=== PATIENT | female | born 1955 | race Caucasian/White ===

== ENCOUNTER 2019-05-04 12:22 | Inpatient (IN) | payer MEDICARE, BC ==
[2019-05-04] MEDS ORDERED: Sodium Chloride 0.9% 1,000 ML IV ONE (12:41)
--- NOTE | 2019-05-04 12:49 | ED Physician Chart ---
ED Chief Complaint/HPI - Patient Information Date Seen:: 05/04/19 Time Seen:: 12:35 Chief Complaint:: abdominal pain and diarrhea History of Present Illness:: Patient's had epigastric pain and diarrhea for 3 days. She has nausea but no vomiting. No fever. She has had diarrhea about 10 times. Pain is currently 6 on a scale of 1-10 Allergies:: Allergies Allergy/AdvReac Type Severity Reaction Status Date / Time No Known Allergies Allergy Verified 05/04/19 12:35 Vitals:: Vital Signs - 8 hr 05/04/19 12:35 Temp 98 F HR 94 RR 16 BP 125/58 O2 Sat % 97 Historian:: Patient, Family Member Review:: Nurse's Note Reviewed ED Review of Systems - Review of Systems General/Constitutional: No fever, No chills Skin: No skin lesions Head: No headache Eyes: No loss of vision ENT: No earache Neck: No neck pain Cardio Vascular: No chest pain, No palpitations Pulmonary: No SOB GI: Nausea, Diarrhea, Pain G/U: No dysuria, No frequency, No hematuria Musculoskeletal: No bone or joint pain, No back pain, No muscle pain Endocrine: No polyuria Psychiatric: No prior psych history Hematopoietic: No bruising Allergic/Immuno: No urticaria Neurological: No syncope ED Past Medical History - Past Medical History Past Medical History: HTN, DM, Dyslipidemia, Other (hyperlipidemia) Family History: Diabetes Melitus, HTN Social History: Non Smoker, No Alcohol Surgical History: Cholecystectomy, other (lumbar surgery 02/25/2019 with 8 screws in her back. Since the surgeries she's been unable to walk) Psychiatricy History: None Medication: Reviewed ED Physical Exam - Physical Examination General/Constitutional: Awake, Well-developed, well-nourished, Alert Head: Atraumatic Eyes: Lids, conjuctiva normal, PERRL Skin: No rash, No ecchymosis, Well hydrated, No lymphadenopathy Other Skin comments:: Stage sacral decubitus is reported by the RN ENMT: External ears, nose nl, Nasal exam nl Other ENMT comments:: full upper and lower dentures Neck: No nuchal rigidity Respiratory: Nl effort/Exclusion, Clear to Auscultation Cardio Vascular: RRR, No murmur, gallop, rubs, NL S1 S2 GI: No organomegaly, No hernia, Normal BS's, Nondistended, No mass/bruits Other GI comments:: Epigastric tenderness : No CVA tenderness Extremities: Normal digits & nails Neuro/Psych: No focal deficits ED Assessment - Assessment General Assessment: At 1440 patient's pain was a 4 out of 10; will give 2 mg of morphine sulfate intravenously ED Septic Shock - . Is Septic Shock (SBP<90, OR Lactate>4 mmol\L) present?: No - <6hrs of presentation: Vital Signs: Vital Signs - 8 hr 05/04/19 12:35 Temp 98 F HR 94 RR 16 BP 125/58 O2 Sat % 97 ED Reassessment (Disposition) - Reassessment Reassessment Condition:: Unchanged - Diagnosis Diagnosis:: Gastroenteritis; diabetes; hyperglycemia - Patient Disposition Admitted to:: Med/Surg Admitting Medical Physician:: Marty Agustin Condition at Disposition:: Stable, Improved
[2019-05-04] MEDS ORDERED: Morphine Sulfate 4 mg/mL 1mL Syr IVP STA (12:51)
[2019-05-04 13:00] LABS: % BASOPHILS 0.4 % (0.0-2.0); % LYMPHOCYTES 25.3 % (20.0-50.0); % MONOCYTES 4.2 % (2.0-10.0); % NEUTROPHILS 68.1 % (40.0-80.0); BASOPHILE ABSOLUTE 0.1 Th/cumm (0-0.2); EOSINOPHILE ABSOLUTE 0.3 Th/cmm (0.1-0.4); HEMATOCRIT 29.5 % (41.0-60); HEMOGLOBIN 9.7 gm/dL (12-16); LYMPHOCYTE ABSOLUTE 3.2 Th/cmm (1.5-3.0); MEAN CELL VOLUME 79.1 fl (81-100); MEAN CORPUSCULAR HEMOGLOBIN 26.1 pg (27.0-31.0); MONOCYTE ABSOLUTE 0.5 Th/cmm (0.3-1.0); NEUTROPHILE ABSOLUTE 8.5 Th/cmm (1.8-8.0); PLATELET COUNT 323 Th/cmm (150-400); RED BLOOD COUNT 3.73 Mil/cmm (3.80-5.20); RED CELL DISTRIBUTION WIDTH 16.3 % (11.5-20.0); WHITE BLOOD COUNT 12.6 Th/cmm (4.8-10.8)
[2019-05-04 13:11] LABS: ANION GAP 15.4 (7.0-16.0); CALCIUM SERUM 9.2 mg/dL (8.6-10.3); CARBON DIOXIDE 21.9 mEq/L (21.0-31.0); CREATININE - SERUM 1.4 mg/dL (0.6-1.2); GFR AFRICAN-AMERICAN 48.4 ml/min (>90); POTASSIUM SERUM 4.3 mEq/L (3.5-5.1)
[2019-05-04] MEDS ORDERED: Morphine Sulfate 4 mg/mL 1mL Syr ONE (13:16)
[2019-05-04] MEDS ORDERED: Morphine Sulfate 2 mg/mL 1mL Syr IV STA (14:47)
[2019-05-04] MEDS ORDERED: Morphine Sulfate 2 mg/mL 1mL Syr ONE (15:10)
[2019-05-04] MEDS ORDERED: Dextrose 50% 50 mL Abboject IVP PRN (17:27)
[2019-05-04] MEDS ORDERED: GLUCAGON HCl 1 MG KIT IM PRN (17:27)
[2019-05-04] MEDS ORDERED: Diphenoxylate/Atropine 2.5mg Tab PO PRN (17:31)
[2019-05-04 17:38] LABS: MAGNESIUM 1.3 mg/dL (1.9-2.7)
[2019-05-04] MEDS ORDERED: Mag Sulfate 2gm/50mL Premix 2 GM/50 ML BAG IV ONE ×2 (17:42)
[2019-05-04] MEDS ORDERED: Levofloxacin 500mg/100mL 500 MG/100 ML BAG IV SCH ×2 (17:45→20:00)
[2019-05-04 18:13] VITALS: BP 110/65
[2019-05-04] MEDS: Sodium Chloride 0.9% 1,000 ML IV SCH (20:13)
[2019-05-05 05:22] LABS: % BASOPHILS 0.8 % (0.0-2.0); % EOSINOPHILS 2.2 % (0.0-5.0); % LYMPHOCYTES 29.9 % (20.0-50.0); % MONOCYTES 4.5 % (2.0-10.0); % NEUTROPHILS 62.6 % (40.0-80.0); BASOPHILE ABSOLUTE 0.1 Th/cumm (0-0.2); EOSINOPHILE ABSOLUTE 0.3 Th/cmm (0.1-0.4); HEMATOCRIT 26.6 % (41.0-60); HEMOGLOBIN 8.8 gm/dL (12-16); LYMPHOCYTE ABSOLUTE 3.6 Th/cmm (1.5-3.0); MEAN CELL VOLUME 78.4 fl (81-100); MEAN CORPUSCULAR HEMOGLOBIN 26.1 pg (27.0-31.0); MEAN CORPUSCULAR HGB CONC 33.3 pg (28.0-36.0); MONOCYTE ABSOLUTE 0.5 Th/cmm (0.3-1.0); NEUTROPHILE ABSOLUTE 7.4 Th/cmm (1.8-8.0); PLATELET COUNT 318 Th/cmm (150-400); RED BLOOD COUNT 3.39 Mil/cmm (3.80-5.20); RED CELL DISTRIBUTION WIDTH 16.1 % (11.5-20.0); WHITE BLOOD COUNT 11.9 Th/cmm (4.8-10.8)
[2019-05-05 05:28] LABS: INR 0.92 (0.5-1.4)
[2019-05-05] MEDS: Sodium Chloride 0.9% 1,000 ML IV SCH ×2 (05:31→20:05)
[2019-05-05 05:33] LABS: ANION GAP 13.2 (7.0-16.0); CALCIUM SERUM 8.7 mg/dL (8.6-10.3); CARBON DIOXIDE 21.5 mEq/L (21.0-31.0); CREATININE - SERUM 1.3 mg/dL (0.6-1.2); GFR AFRICAN-AMERICAN 52.7 ml/min (>90); GFR NON AFRICAN-AMERICAN 43.6 ml/min; POTASSIUM SERUM 4.7 mEq/L (3.5-5.1)
[2019-05-05 06:08] LABS: A1C 6.4 % (4.8-5.6)
[2019-05-05] MEDS: INSULIN LISPRO SLIDING SCALE 100 UNITS/ML UNIT SUBQ SCH ×3 (07:41→18:25)
[2019-05-05] MEDS: Levofloxacin 500mg/100mL Premix Bag IV SCH (09:14)
[2019-05-05] MEDS ORDERED: Non-Formulary Item 1 EA (Zolpidem Tartrate [Ambien] 10 MG) PO PRN (11:56)
--- NOTE | 2019-05-05 12:16 | History & Physical ---
ADMIT DATE: 05/05/2019 CHIEF COMPLAINT: Abdominal pain, diarrhea. HISTORY OF PRESENT ILLNESS: A 64-year-old female who has a 3-day history of epigastric pain associated with diarrhea. The patient denies eating anything unusual. The patient denies any fevers. Due to the patient's increase in diarrhea, the patient was brought to the ER to be evaluated. PAST MEDICAL HISTORY: Hypertension, diabetes, dyslipidemia, hyperlipidemia. FAMILY HISTORY: Noncontributory. SOCIAL HISTORY: The patient denies alcohol, illicit drug use, tobacco smoking. SURGICAL HISTORY: Cholecystectomy, lumbar surgery on 02/25/2019 with 8 screws in her back. MEDICATIONS: See medication list. REVIEW OF SYSTEMS: GENERAL: Denies any fever or chills. CARDIOVASCULAR: Denies chest pain. RESPIRATORY: Denies shortness of breath. GASTROINTESTINAL: Denies nausea, vomiting, abdominal pain. She denies abdominal complaints of epigastric pain and diarrhea. All other systems are reviewed. PHYSICAL EXAMINATION: GENERAL: The patient is an elderly female, well developed, well nourished, no apparent distress. VITAL SIGNS: Temperature 98.2, heart rate 75, blood pressure 109/50, respirations 18, O2 of 98%. HEENT: Head; normocephalic, atraumatic. NECK: Supple. No mass. LUNGS: Clear bilaterally. ABDOMEN: Soft, nontender. LABORATORY DATA: WBC 11.9, H and H 8.8 and 26.6, platelet of 318. Sodium 140, potassium 4.7, chloride 110, BUN 21, creatinine 1.3, magnesium of 1.3. ASSESSMENT: Acute gastroenteritis, unable to walk secondary to status post back surgery, generalized weakness, leukocytosis, microcytic anemia, hypertension, diabetes, dyslipidemia. PLAN: The patient to be admitted to the Med/Surg unit. We will get GI consultation on board. We will send stool for cultures and C. diff. We will get Infectious Disease on the case as well. We will get followup labs for tomorrow morning. Also get GI on the case. We will continue to monitor this patient. JOB# [id number]
[2019-05-05] MEDS: Hydrocodone/APAP 5mg/325mg Tab PO PRN ×2 (13:00→17:43)
[2019-05-05 16:53] LABS: ALB/GLOB RATIO 1.2 (1.0-1.8); ALBUMIN 3.4 gm/dL (3.7-5.3); TOTAL PROTEIN,SERUM 6.3 gm/dL (6.0-8.3)
[2019-05-05 16:59] LABS: BILIRUBIN,DIRECT 0.06 mg/dL (0.0-0.2)
[2019-05-05] MEDS ORDERED: Non-Formulary Item 1 EA (Gabapentin [Neurontin] 600 MG) PO SCH (17:00)
[2019-05-05] MEDS ORDERED: GLIMEPIRIDE 4 MG PO SCH (17:00)
[2019-05-05] MEDS ORDERED: Non-Formulary Item 1 EA (Metformin Hcl [Metformin Hcl] 1,000 MG) PO SCH (17:00)
--- NOTE | 2019-05-05 17:03 | Infectious Disease Prog Note ---
Infectious Disease Subjective - Review of Systems Service Date: 05/05/19 Events since last encounter: cc gastroenteritis/ hpi- pt cx pending flagy added tolevaquin ros no efrver o.e Vital Signs - 24 hr 05/04/19 05/04/19 05/04/19 18:00 18:12 20:00 Temp 97.5 F HR 84 RR 20 20 BP 110/65 110/65 O2 Sat % 100 05/04/19 05/05/19 05/05/19 21:00 05:00 08:00 Temp 98.7 F 97.8 F 98.2 F HR 84 87 75 RR 20 20 20 BP 108/57 100/59 109/50 O2 Sat % 96 100 98 05/05/19 05/05/19 12:00 16:00 Temp 98.2 F 98.4 F HR 85 72 RR 18 18 BP 123/65 133/70 O2 Sat % 98 95 Laboratory Results - last 24 hr 05/04/19 05/04/19 05/05/19 12:50 21:02 05:00 WBC 11.9 H RBC 3.39 L Hgb 8.8 L Hct 26.6 L MCV 78.4 L MCH 26.1 L MCHC Differential 33.3 RDW 16.1 Plt Count 318 MPV 8.4 Neutrophils % 62.6 Lymphocytes % 29.9 Monocytes % 4.5 Eosinophils % 2.2 Basophils % 0.8 PT INR PTT (Actin FS) Sodium Potassium Chloride Carbon Dioxide Anion Gap BUN Creatinine Est GFR ( Amer) Est GFR (Non-Af Amer) BUN/Creatinine Ratio Glucose POC Glucose 114 H Calcium Magnesium 1.3 L Direct Bilirubin AST ALT Alkaline Phosphatase Total Protein Albumin Globulin Albumin/Globulin Ratio Triglycerides Cholesterol LDL Cholesterol Direct HDL Cholesterol 05/05/19 05/05/19 05/05/19 05:00 05:00 06:46 WBC RBC Hgb Hct MCV MCH MCHC Differential RDW Plt Count MPV Neutrophils % Lymphocytes % Monocytes % Eosinophils % Basophils % PT 9.6 INR 0.92 PTT (Actin FS) 25.6 L Sodium 140 Potassium 4.7 Chloride 110 H Carbon Dioxide 21.5 Anion Gap 13.2 BUN 21 Creatinine 1.3 H Est GFR ( Amer) 52.7 Est GFR (Non-Af Amer) 43.6 BUN/Creatinine Ratio 16.2 Glucose 89 D POC Glucose 93 Calcium 8.7 Magnesium Direct Bilirubin AST ALT Alkaline Phosphatase Total Protein Albumin Globulin Albumin/Globulin Ratio Triglycerides 239 H Cholesterol 122 LDL Cholesterol Direct 61 L HDL Cholesterol 28 05/05/19 05/05/19 12:21 16:20 WBC RBC Hgb Hct MCV MCH MCHC Differential RDW Plt Count MPV Neutrophils % Lymphocytes % Monocytes % Eosinophils % Basophils % PT INR PTT (Actin FS) Sodium Potassium Chloride Carbon Dioxide Anion Gap BUN Creatinine Est GFR ( Amer) Est GFR (Non-Af Amer) BUN/Creatinine Ratio Glucose POC Glucose 107 H Calcium Magnesium Direct Bilirubin 0.06 AST 15 ALT 12 Alkaline Phosphatase 84 Total Protein 6.3 Albumin 3.4 L Globulin 2.9 Albumin/Globulin Ratio 1.2 Triglycerides Cholesterol LDL Cholesterol Direct HDL Cholesterol Current Medications Acetaminophen/Hydrocodone Bitart ([place] 5mg/325mg) 1 tab PO QID PRN PRN Reason: Pain (Moderate) Stop: 07/04/19 11:55 Last Admin: 05/05/19 13:00 Dose: 1 tab Atorvastatin Calcium (Lipitor) 40 mg PO DAILY [facility] Stop: 07/05/19 08:59 [place] Oil/Russian Balsam/Trypsin (Venelex) 1 appl TP DAILY [facility] Stop: 07/04/19 09:59 Dextrose (D50w) 50 ml IVP PRN PRN PRN Reason: Blood Glucose less than 70 Stop: 07/03/19 17:26 Dextrose (Glutose 40%) 18.75 gm PO PRN PRN PRN Reason: Blood Glucose less than 70 Stop: 07/03/19 17:26 Diazepam (Valium) 5 mg PO BID PRN; Protocol PRN Reason: Anxiety Stop: 07/04/19 11:55 Diphenoxylate HCl/Atropine (Lomotil) 1 tab PO Q4HR PRN PRN Reason: Diarrhea Stop: 07/03/19 17:30 Gabapentin (Neurontin) 600 mg PO BID [facility] Stop: 07/04/19 16:59 Glimepiride (Amaryl) 4 mg PO BID [facility] Stop: 07/04/19 16:59 Glucagon (Glucagen) 1 mg IM PRN PRN PRN Reason: Blood Glucose less than 70 Stop: 07/03/19 17:26 Sodium Chloride (Nacl 0.9%) 1,000 mls @ 100 mls/hr IV .Q10H [facility] Stop: 07/03/19 17:26 Last Admin: 05/05/19 05:31 Dose: 100 mls/hr Levofloxacin (Levaquin Pb) 500 mg in 100 mls @ 100 mls/hr IV Q24HR [facility] Stop: 07/04/19 07:59 Last Admin: 05/05/19 09:14 Dose: 100 mls/hr Metronidazole (Flagyl) 500 mg in 100 mls @ 100 mls/hr IV Q8HR [facility] Stop: 07/04/19 20:59 Insulin Human Lispro (Humalog Insulin Sliding Scale) 0 units SUBQ Q6HR [facility]; Protocol Stop: 07/03/19 17:59 Last Admin: 05/05/19 14:16 Dose: Not Given Lisinopril (Zestril) 20 mg PO BID [facility] Stop: 07/04/19 16:59 Loperamide HCl (Imodium) 2 mg PO Q6H PRN PRN Reason: Diarrhea Stop: 07/04/19 11:55 Metformin HCl (Glucophage) 1,000 mg PO BID [facility] Stop: 07/04/19 16:59 Naproxen (Naprosyn) 500 mg PO BID [facility] Stop: 07/04/19 16:59 Ondansetron HCl (Zofran) 4 mg IV Q6H PRN PRN Reason: Nausea / Vomiting Stop: 07/04/19 11:33 Pantoprazole Sodium (Protonix) 40 mg PO DAILY [facility] Stop: 07/05/19 08:59 Quetiapine Fumarate (Seroquel) 50 mg PO HS [facility]; Protocol Stop: 07/04/19 20:59 Sitagliptin Phosphate (Januvia) 100 mg PO DAILY [facility] Stop: 07/05/19 08:59 Vitamin B Complex/Vit C/Folic Acid (Vitamin B Complex W/Vitamin C) 1 tab PO DAILY [facility] Stop: 07/05/19 08:59 Zolpidem Tartrate (Ambien) 5 mg PO HS PRN PRN Reason: Insomnia Stop: 07/03/19 22:56 Last Admin: 05/04/19 23:19 Dose: 5 mg Zolpidem Tartrate (Ambien) 5 mg PO HS PRN PRN Reason: Insomnia Stop: 07/04/19 13:39 Infectious Disease Objective - Results Result Diagrams: 05/05/19 05:00 05/05/19 05:00 Recent Labs: Laboratory Last Values WBC 11.9 Th/cmm (4.8-10.8) H 05/05/19 05:00 RBC 3.39 Mil/cmm (3.80-5.20) L 05/05/19 05:00 Hgb 8.8 gm/dL (12-16) L 05/05/19 05:00 Hct 26.6 % (41.0-60) L 05/05/19 05:00 MCV 78.4 fl (81-100) L 05/05/19 05:00 MCH 26.1 pg (27.0-31.0) L 05/05/19 05:00 MCHC Differential 33.3 pg (28.0-36.0) 05/05/19 05:00 RDW 16.1 % (11.5-20.0) 05/05/19 05:00 Plt Count 318 Th/cmm (150-400) 05/05/19 05:00 MPV 8.4 fl 05/05/19 05:00 Neutrophils % 62.6 % (40.0-80.0) 05/05/19 05:00 Lymphocytes % 29.9 % (20.0-50.0) 05/05/19 05:00 Monocytes % 4.5 % (2.0-10.0) 05/05/19 05:00 Eosinophils % 2.2 % (0.0-5.0) 05/05/19 05:00 Basophils % 0.8 % (0.0-2.0) 05/05/19 05:00 PT 9.6 SECONDS (9.5-11.5) 05/05/19 05:00 INR 0.92 (0.5-1.4) 05/05/19 05:00 PTT (Actin FS) 25.6 SECONDS (26.0-38.0) L 05/05/19 05:00 Sodium 140 mEq/L (136-145) 05/05/19 05:00 Potassium 4.7 mEq/L (3.5-5.1) 05/05/19 05:00 Chloride 110 mEq/L (98-107) H 05/05/19 05:00 Carbon Dioxide 21.5 mEq/L (21.0-31.0) 05/05/19 05:00 Anion Gap 13.2 (7.0-16.0) 05/05/19 05:00 BUN 21 mg/dL (7-25) 05/05/19 05:00 Creatinine 1.3 mg/dL (0.6-1.2) H 05/05/19 05:00 Est GFR ( Amer) 52.7 ml/min (>90) 05/05/19 05:00 Est GFR (Non-Af Amer) 43.6 ml/min 05/05/19 05:00 BUN/Creatinine Ratio 16.2 05/05/19 05:00 Glucose 89 mg/dL (70-105) D 05/05/19 05:00 POC Glucose 107 MG/DL (70 - 105) H 05/05/19 12:21 Calcium 8.7 mg/dL (8.6-10.3) 05/05/19 05:00 Magnesium 1.3 mg/dL (1.9-2.7) L 05/04/19 12:50 Direct Bilirubin 0.06 mg/dL (0.0-0.2) 05/05/19 16:20 AST 15 U/L (13-39) 05/05/19 16:20 ALT 12 U/L (7-52) 05/05/19 16:20 Alkaline Phosphatase 84 U/L (34-104) 05/05/19 16:20 Total Protein 6.3 gm/dL (6.0-8.3) 05/05/19 16:20 Albumin 3.4 gm/dL (3.7-5.3) L 05/05/19 16:20 Globulin 2.9 gm/dL 05/05/19 16:20 Albumin/Globulin Ratio 1.2 (1.0-1.8) 05/05/19 16:20 Triglycerides 239 mg/dL (<150) H 05/05/19 05:00 Cholesterol 122 mg/dL (<200) 05/05/19 05:00 LDL Cholesterol Direct 61 mg/dL (75-193) L 05/05/19 05:00 HDL Cholesterol 28 mg/dL (23-92) 05/05/19 05:00 Lipase 52 U/L (11-82) 05/04/19 12:50 - Physical Exam Vitals and I&O: Vital Signs Temp 98.4 F 05/05/19 16:00 Pulse 72 05/05/19 16:00 Resp 18 05/05/19 16:00 BP 133/70 05/05/19 16:00 Pulse Ox 95 05/05/19 16:00 Intake & Output 05/04/19 05/05/19 05/05/19 18:59 06:59 18:59 Intake Total 1300 1330 Balance 1300 1330 Weight (lbs) 83.234 kg 81.102 kg Intake: Intake, IV Amount 1000 930 Sodium Chloride 0.9% 1, 930 000 ml @ 100 mls/hr IV . Q10H [facility] Rx#:[id number] Sodium Chloride 0.9% 1, 1000 000 ml @ Wide Open IV . Q0M ONE Rx#:[id number] Oral 300 200 Other 200 Other: # Voids 3 Weight Source Bedscale Bedscale Active Medications: Current Medications Acetaminophen/Hydrocodone Bitart ([place] 5mg/325mg) 1 tab PO QID PRN PRN Reason: Pain (Moderate) Stop: 07/04/19 11:55 Last Admin: 05/05/19 13:00 Dose: 1 tab Atorvastatin Calcium (Lipitor) 40 mg PO DAILY [facility] Stop: 07/05/19 08:59 [place] Oil/[place] Balsam/Trypsin (Venelex) 1 appl TP DAILY [facility] Stop: 07/04/19 09:59 Dextrose (D50w) 50 ml IVP PRN PRN PRN Reason: Blood Glucose less than 70 Stop: 07/03/19 17:26 Dextrose (Glutose 40%) 18.75 gm PO PRN PRN PRN Reason: Blood Glucose less than 70 Stop: 07/03/19 17:26 Diazepam (Valium) 5 mg PO BID PRN; Protocol PRN Reason: Anxiety Stop: 07/04/19 11:55 Diphenoxylate HCl/Atropine (Lomotil) 1 tab PO Q4HR PRN PRN Reason: Diarrhea Stop: 07/03/19 17:30 Gabapentin (Neurontin) 600 mg PO BID [facility] Stop: 07/04/19 16:59 Glimepiride (Amaryl) 4 mg PO BID [facility] Stop: 07/04/19 16:59 Glucagon (Glucagen) 1 mg IM PRN PRN PRN Reason: Blood Glucose less than 70 Stop: 07/03/19 17:26 Sodium Chloride (Nacl 0.9%) 1,000 mls @ 100 mls/hr IV .Q10H [facility] Stop: 07/03/19 17:26 Last Admin: 05/05/19 05:31 Dose: 100 mls/hr Levofloxacin (Levaquin Pb) 500 mg in 100 mls @ 100 mls/hr IV Q24HR [facility] Stop: 07/04/19 07:59 Last Admin: 05/05/19 09:14 Dose: 100 mls/hr Metronidazole (Flagyl) 500 mg in 100 mls @ 100 mls/hr IV Q8HR [facility] Stop: 07/04/19 20:59 Insulin Human Lispro (Humalog Insulin Sliding Scale) 0 units SUBQ Q6HR [facility]; Protocol Stop: 07/03/19 17:59 Last Admin: 05/05/19 14:16 Dose: Not Given Lisinopril (Zestril) 20 mg PO BID [facility] Stop: 07/04/19 16:59 Loperamide HCl (Imodium) 2 mg PO Q6H PRN PRN Reason: Diarrhea Stop: 07/04/19 11:55 Metformin HCl (Glucophage) 1,000 mg PO BID [facility] Stop: 07/04/19 16:59 Naproxen (Naprosyn) 500 mg PO BID [facility] Stop: 07/04/19 16:59 Ondansetron HCl (Zofran) 4 mg IV Q6H PRN PRN Reason: Nausea / Vomiting Stop: 07/04/19 11:33 Pantoprazole Sodium (Protonix) 40 mg PO DAILY [facility] Stop: 07/05/19 08:59 Quetiapine Fumarate (Seroquel) 50 mg PO HS [facility]; Protocol Stop: 07/04/19 20:59 Sitagliptin Phosphate (Januvia) 100 mg PO DAILY [facility] Stop: 07/05/19 08:59 Vitamin B Complex/Vit C/Folic Acid (Vitamin B Complex W/Vitamin C) 1 tab PO DAILY [facility] Stop: 07/05/19 08:59 Zolpidem Tartrate (Ambien) 5 mg PO HS PRN PRN Reason: Insomnia Stop: 07/03/19 22:56 Last Admin: 05/04/19 23:19 Dose: 5 mg Zolpidem Tartrate (Ambien) 5 mg PO HS PRN PRN Reason: Insomnia Stop: 07/04/19 13:39 Nutritional Asmnt/Malnutr-PDOC - Dietary Evaluation Malnutrition Findings (Please click <Entered> for more info): Nutritional Asmnt/Malnutrition Start: 05/05/19 16: 26 Text: Status: Complete Freq: Protocol: Document 05/05/19 16:32 STACEY (Rec: 05/05/19 16:37 [email or web address] [email or web address]) Nutritional Asmnt/Malnutrition Patient General Information Nutritional Screening Moderate Risk Consult Diagnosis Acute Gastroenteritis Pertinent Medical Hx/Surgical Hx HTN, DM, Dyslipidemia, Hyperlipidemia Subjective Information IA/Consult: Elevated blood sugar, Pressure Ulcers (2) on Coccygeal area Pt is a 64-year-old female admitted on 05/04 c/o abdominal pain and diarrhea x 3 days. Per ED physician chart (05/04), Pt had nausea but no vomiting. Per Meal/Nutrition Activity Record, Pt ate 100% dinner on 05/04. Consult order received for glucose 184 on 05/04 and glucose level trend WNL on 05/05 with Glucose 89 noted. Per wound care note (05/05), Pressure ulcer (unable to determine stage) on coccygeal area 2x with periwound intact and surrounding scar tissue noted. Visited Pt in room, Pt stated she checks glucose level 2x/day at home and blood glucose target is 90-120 per MD. She tried to have low- sugar food items for usual diet at home. Pt stated she does not need diabetes education at this time. Pt ate 25% breakfast and 0% lunch d/ t nausea/pain. Sopke to MARTHA Chiu, Added Glucerna TID to meet nutrient needs and to support wound healing. Will continue monitor PO intake and wound healing progress. HT: 52 WT: 178 LB 12.8 oz (80.9 kg) ADJ BW: 62.42 kg BMI: 32.70 (Obese) GI: Nausea, Vomiting, Abdominal pain, diarrhea, Soft , Non-Tender, Large, Round BM: Not noted I/O: 2630/Not Noted Skin: Pale, Warm, Dry, Elastic , Scar on lower back, Skin tear and reddened on coccyx Wound: Pressure ulcer (unable to determine stage) on coccygeal area 2x with periwound intact and surrounding scar tissue Robby: 14 Diet Order: [facility] [place] Estimated Energy Needs: ( Pressure Ulcer Stage III-IV Small/Undraining, ADJ BW) 9677-7241 kcals (28-33 kcals/ kg) 75-94 g Pro (1.2-1.5 g/kg) 2373-8963 ml (30-40 ml/kg) Current Diet Order/ Nutrition Support [facility] [place] Pertinent Medications D50w (PRN), Glutose 40% (PRN), Lomotil (PRN), Glucagen (PRN) , INS-SS, Nacl 0.9% Pertinent Labs 05/05: Hgb/Hct 8.8/26.6, BUN/Cr 21/1.3, POC glucose (last 24 hours) 114, 93, 107 05/04: Hgb/Hct 9.7/29.5, BUN/Cr 24/1.4, Glucose 184 Nutritional Hx/Data Height 1.57 m Height (Calculated Centimeters) 157.5 Current Weight (lbs) 80.739 kg Weight (Calculated Kilograms) 80.7 Weight (Calculated Grams) 26710.4 [place] Body Weight 50.1 kg % [place] Body Weight 161 Body Mass Index (BMI) 32.5 Weight Status Obese GI Symptoms GI Symptoms Nausea Vomitting Diarrhea Last BM Not noted Skin Integrity/Comment: Skin: Pale, Warm, Dry, Elastic , Scar on lower back, Skin tear and reddened on coccyx Wound: Pressure ulcer (unable to determine stage) on coccygeal area 2x with periwound intact and surrounding scar tissue Robby: 14 Current %PO Negligible < 25% Estimated Nutritional Goals BEE in Kcals: Adj wt of IBW Calories/Kcals/Kg 28-33 Kcals Calculated 9529-2093 Protein: Adj wt of IBW Protein g/k.2-1.5 Protein Calculated 75-94 Fluid: ml 7043-1591 ml (30-40 ml/kg) Nutritional Problem 2. Problem Problem Increased calories and protein needs Etiology r/t wound healing Signs/Symptoms: aeb Pressure ulcer (unable to determine stage) on coccygeal area 1. Problem Problem Inadequate oral intake Etiology r/t nausea/pain/poor appetite Signs/Symptoms: aeb PO intake 0-25% breakfast and lunch on 05/05 per Pt self- reported. Malnutrition Related to Morbid Obesity Malnutrition related to morbid obesity No Intervention/Recommendation Comments 1.Continue with [facility] [place] diet as ordered. 2.Continue anti-hyperglycemic medication for glucose control per MD order. 3.Added Glucerna TID to meet nutrient needs and to support wound healing. 4.RN to encourage improved PO intake. 5.Continue wound care recommendation per wound care note. Expected Outcomes/Goals Expected Outcomes/Goals 1.PO intake to meet 75% of nutritional needs. 2.Monitor PO intake, wt, skin integrity to trend WNL, and nutrition related labs to trend WNL. 3.F/U as high risk in 2-3 days , 05/07-05/08
[2019-05-05] MEDS: Venelex 60gm Tube TP SCH (17:49)
[2019-05-05] MEDS: metroNIDAZOLE 500mg/NS 100mL 500 MG/100 ML BAG IV SCH (20:02)
[2019-05-05 20:56] LABS: BILIRUBIN,TOTAL 0.3 mg/dL (0.3-1.0)
[2019-05-06] MEDS: INSULIN LISPRO SLIDING SCALE 100 UNITS/ML UNIT SUBQ SCH ×6 (00:14→21:21)
--- NOTE | 2019-05-06 02:54 | Consultation ---
DATE OF CONSULTATION: 05/05/2019 INPATIENT GASTROINTESTINAL CONSULTATION REFERRING PHYSICIAN: Dr. Agustin. REASON FOR CONSULTATION: Epigastric pain. HISTORY OF PRESENT ILLNESS: This is a 64-year-old female with a 3-day history of epigastric pain associated with some nausea, but no vomiting. The patient has had diarrhea in the past, but none at this time. She denies having any melena, hematochezia, hematemesis or coffee-ground emesis. She has been worked up for this pain before and tells me that she had endoscopy, colonoscopy that was done as an outpatient at the referral of her primary doctor who is in [place]. PAST MEDICAL HISTORY: Hypertension, diabetes, hyperlipidemia. PAST SURGICAL HISTORY: Cholecystectomy and . FAMILY HISTORY: Noncontributory. SOCIAL HISTORY: Denies tobacco, alcohol or IV drug usage. ALLERGIES: None. CURRENT MEDICATIONS: [place], Lipitor, Valium, Lomotil, Neurontin, Amaryl, glucagon, insulin, Levaquin, Zestril, Imodium, Glucophage, naproxen, Zofran, Protonix, Seroquel, Januvia, Ambien. REVIEW OF SYSTEMS: Ten point review of system was performed and pertinent positives were the epigastric pain. All systems were otherwise negative. PHYSICAL EXAMINATION: VITAL SIGNS: Temperature is 98.2, breathing 18, pulse of 85, blood pressure 123/65, satting 98%. GENERAL: In no apparent distress. EYES: Anicteric. Normal conjunctivae. HEENT: Normocephalic, atraumatic. Moist mucous membranes. NECK: Soft, supple. CHEST: Clear. No effort. CARDIOVASCULAR: Regular rate and rhythm. ABDOMEN: Soft, nondistended, tender epigastrium. No rebound, no guarding. SKIN: Warm, dry. EXTREMITIES: Reveal no cyanosis. PSYCHOLOGIC: Alert and oriented x 3. LABORATORY DATA: Show white count 9.9, hemoglobin 8.8, platelets 318. INR 0.92. Creatinine 1.3, glucose is 89, lipase 52. IMPRESSION: This is a 64-year-old female with epigastric pain of unclear etiology, could be related to her underlying diabetes causing gastroparesis. She states she had an endoscopy and colonoscopy within the year and therefore, at this time does not want the test to be repeated. The patient could have gastritis, peptic ulcer disease is possible. Pancreatitis less likely with normal lipase level. LFTs should be checked to rule out any other forms of hepatitis. Further imaging would be helpful as well. PLAN: 1. Check CT abdomen and pelvis. 2. Get a gastric emptying study. 3. Get records of EGD and colonoscopy. 4. Continue Protonix. 5. Check LFTs. 6. Continue supportive care. Thank you for allowing me to participate. Please call me if any questions. JOB# [id number]
[2019-05-06 05:28] LABS: % BASOPHILS 0.4 % (0.0-2.0); % EOSINOPHILS 1.9 % (0.0-5.0); % LYMPHOCYTES 33.5 % (20.0-50.0); % MONOCYTES 5.3 % (2.0-10.0); % NEUTROPHILS 58.9 % (40.0-80.0); EOSINOPHILE ABSOLUTE 0.2 Th/cmm (0.1-0.4); HEMATOCRIT 26.7 % (41.0-60); HEMOGLOBIN 8.8 gm/dL (12-16); LYMPHOCYTE ABSOLUTE 3.4 Th/cmm (1.5-3.0); MEAN CELL VOLUME 78.7 fl (81-100); MEAN CORPUSCULAR HEMOGLOBIN 25.9 pg (27.0-31.0); MEAN CORPUSCULAR HGB CONC 32.9 pg (28.0-36.0); MONOCYTE ABSOLUTE 0.5 Th/cmm (0.3-1.0); NEUTROPHILE ABSOLUTE 6.1 Th/cmm (1.8-8.0); PLATELET COUNT 301 Th/cmm (150-400); RED BLOOD COUNT 3.39 Mil/cmm (3.80-5.20); RED CELL DISTRIBUTION WIDTH 16.7 % (11.5-20.0); WHITE BLOOD COUNT 10.2 Th/cmm (4.8-10.8)
[2019-05-06] MEDS: metroNIDAZOLE 500mg/NS 100mL 500 MG/100 ML BAG IV SCH ×3 (05:33→21:15)
[2019-05-06 05:37] LABS: CALCIUM SERUM 8.9 mg/dL (8.6-10.3); CARBON DIOXIDE 22.5 mEq/L (21.0-31.0); CREATININE - SERUM 1.2 mg/dL (0.6-1.2); GFR AFRICAN-AMERICAN 57.8 ml/min (>90); GFR NON AFRICAN-AMERICAN 47.8 ml/min; POTASSIUM SERUM 4.5 mEq/L (3.5-5.1)
--- NOTE | 2019-05-06 08:06 | GI Progress Note ---
Subjective - Review of Systems Subjective: FEELING BETTER LESS ABD PAIN GI OBJECTIVE - Results Result Diagrams: 05/06/19 05:10 05/06/19 05:10 Recent Labs: Laboratory Last Values WBC 10.2 Th/cmm (4.8-10.8) 05/06/19 05:10 RBC 3.39 Mil/cmm (3.80-5.20) L 05/06/19 05:10 Hgb 8.8 gm/dL (12-16) L 05/06/19 05:10 Hct 26.7 % (41.0-60) L 05/06/19 05:10 MCV 78.7 fl (81-100) L 05/06/19 05:10 MCH 25.9 pg (27.0-31.0) L 05/06/19 05:10 MCHC Differential 32.9 pg (28.0-36.0) 05/06/19 05:10 RDW 16.7 % (11.5-20.0) 05/06/19 05:10 Plt Count 301 Th/cmm (150-400) 05/06/19 05:10 MPV 8.1 fl 05/06/19 05:10 Neutrophils % 58.9 % (40.0-80.0) 05/06/19 05:10 Lymphocytes % 33.5 % (20.0-50.0) 05/06/19 05:10 Monocytes % 5.3 % (2.0-10.0) 05/06/19 05:10 Eosinophils % 1.9 % (0.0-5.0) 05/06/19 05:10 Basophils % 0.4 % (0.0-2.0) 05/06/19 05:10 PT 9.6 SECONDS (9.5-11.5) 05/05/19 05:00 INR 0.92 (0.5-1.4) 05/05/19 05:00 PTT (Actin FS) 25.6 SECONDS (26.0-38.0) L 05/05/19 05:00 Sodium 140 mEq/L (136-145) 05/06/19 05:10 Potassium 4.5 mEq/L (3.5-5.1) 05/06/19 05:10 Chloride 110 mEq/L (98-107) H 05/06/19 05:10 Carbon Dioxide 22.5 mEq/L (21.0-31.0) 05/06/19 05:10 Anion Gap 12.0 (7.0-16.0) 05/06/19 05:10 BUN 19 mg/dL (7-25) 05/06/19 05:10 Creatinine 1.2 mg/dL (0.6-1.2) 05/06/19 05:10 Est GFR ( Amer) 57.8 ml/min (>90) 05/06/19 05:10 Est GFR (Non-Af Amer) 47.8 ml/min 05/06/19 05:10 BUN/Creatinine Ratio 15.8 05/06/19 05:10 Glucose 93 mg/dL (70-105) 05/06/19 05:10 POC Glucose 74 MG/DL (70 - 105) 05/06/19 05:22 Calcium 8.9 mg/dL (8.6-10.3) 05/06/19 05:10 Magnesium 1.3 mg/dL (1.9-2.7) L 05/04/19 12:50 Total Bilirubin 0.3 mg/dL (0.3-1.0) 05/05/19 16:20 Direct Bilirubin 0.06 mg/dL (0.0-0.2) 05/05/19 16:20 AST 15 U/L (13-39) 05/05/19 16:20 ALT 12 U/L (7-52) 05/05/19 16:20 Alkaline Phosphatase 84 U/L (34-104) 05/05/19 16:20 Total Protein 6.3 gm/dL (6.0-8.3) 05/05/19 16:20 Albumin 3.4 gm/dL (3.7-5.3) L 05/05/19 16:20 Globulin 2.9 gm/dL 05/05/19 16:20 Albumin/Globulin Ratio 1.2 (1.0-1.8) 05/05/19 16:20 Triglycerides 239 mg/dL (<150) H 05/05/19 05:00 Cholesterol 122 mg/dL (<200) 05/05/19 05:00 LDL Cholesterol Direct 61 mg/dL (75-193) L 05/05/19 05:00 HDL Cholesterol 28 mg/dL (23-92) 05/05/19 05:00 Lipase 52 U/L (11-82) 05/04/19 12:50 - Physical Exam Vitals and I&O: Vital Signs Temp 97.8 F 05/05/19 20:00 Pulse 75 05/05/19 20:00 Resp 20 05/05/19 20:00 BP 116/69 05/05/19 20:00 Pulse Ox 99 05/05/19 20:00 Intake & Output 05/05/19 05/06/19 05/06/19 18:59 06:59 18:59 Intake Total 3150 440 Balance 3150 440 Weight (lbs) 79.379 kg 79.379 kg Intake: Intake, IV Amount 1000 200 Sodium Chloride 0.9% 1, 1000 000 ml @ 100 mls/hr IV . Q10H [facility] Rx#:[id number] metroNIDAZOLE 500mg/NS 200 100mL 500 mg In 100 ml @ 100 mls/hr IV Q8HR [facility] Rx #:[id number] Oral 2150 240 Other: # Voids 3 3 # Bowel Movements 0 Weight Source Bedscale Bedscale Active Medications: Current Medications Acetaminophen/Hydrocodone Bitart ([place] 5mg/325mg) 1 tab PO QID PRN PRN Reason: Pain (Moderate) Stop: 07/04/19 11:55 Last Admin: 05/05/19 17:43 Dose: 1 tab Atorvastatin Calcium (Lipitor) 40 mg PO DAILY [facility] Stop: 07/05/19 08:59 [place] Oil/English Balsam/Trypsin (Venelex) 1 appl TP DAILY [facility] Stop: 07/04/19 09:59 Last Admin: 05/05/19 17:49 Dose: 1 appl Dextrose (D50w) 50 ml IVP PRN PRN PRN Reason: Blood Glucose less than 70 Stop: 07/03/19 17:26 Dextrose (Glutose 40%) 18.75 gm PO PRN PRN PRN Reason: Blood Glucose less than 70 Stop: 07/03/19 17:26 Diazepam (Valium) 5 mg PO BID PRN; Protocol PRN Reason: Anxiety Stop: 07/04/19 11:55 Diphenoxylate HCl/Atropine (Lomotil) 1 tab PO Q4HR PRN PRN Reason: Diarrhea Stop: 07/03/19 17:30 Gabapentin (Neurontin) 600 mg PO BID [facility] Stop: 07/04/19 16:59 Last Admin: 05/05/19 17:38 Dose: 600 mg Glimepiride (Amaryl) 4 mg PO BID [facility] Stop: 07/04/19 16:59 Last Admin: 05/05/19 17:54 Dose: Not Given Glucagon (Glucagen) 1 mg IM PRN PRN PRN Reason: Blood Glucose less than 70 Stop: 07/03/19 17:26 Sodium Chloride (Nacl 0.9%) 1,000 mls @ 100 mls/hr IV .Q10H [facility] Stop: 07/03/19 17:26 Last Admin: 05/05/19 20:05 Dose: 100 mls/hr Levofloxacin (Levaquin Pb) 500 mg in 100 mls @ 100 mls/hr IV Q24HR [facility] Stop: 07/04/19 07:59 Last Admin: 05/05/19 09:14 Dose: 100 mls/hr Metronidazole (Flagyl) 500 mg in 100 mls @ 100 mls/hr IV Q8HR [facility] Stop: 07/04/19 20:59 Last Infusion: 05/06/19 06:33 Dose: Infused Insulin Human Lispro (Humalog Insulin Sliding Scale) 0 units SUBQ Q6HR [facility]; Protocol Stop: 07/03/19 17:59 Last Admin: 05/06/19 05:28 Dose: Not Given Lisinopril (Zestril) 20 mg PO BID [facility] Stop: 07/04/19 16:59 Last Admin: 05/05/19 17:39 Dose: 20 mg Loperamide HCl (Imodium) 2 mg PO Q6H PRN PRN Reason: Diarrhea Stop: 07/04/19 11:55 Metformin HCl (Glucophage) 1,000 mg PO BID [facility] Stop: 07/04/19 16:59 Last Admin: 05/05/19 17:54 Dose: Not Given Naproxen (Naprosyn) 500 mg PO BID [facility] Stop: 07/04/19 16:59 Last Admin: 05/05/19 17:37 Dose: Not Given Ondansetron HCl (Zofran) 4 mg IV Q6H PRN PRN Reason: Nausea / Vomiting Stop: 07/04/19 11:33 Last Admin: 05/05/19 19:18 Dose: 4 mg Pantoprazole Sodium (Protonix) 40 mg PO DAILY [facility] Stop: 07/05/19 08:59 Quetiapine Fumarate (Seroquel) 50 mg PO HS [facility]; Protocol Stop: 07/04/19 20:59 Last Admin: 05/05/19 20:02 Dose: 50 mg Sitagliptin Phosphate (Januvia) 100 mg PO DAILY [facility] Stop: 07/05/19 08:59 Vitamin B Complex/Vit C/Folic Acid (Vitamin B Complex W/Vitamin C) 1 tab PO DAILY [facility] Stop: 07/05/19 08:59 Zolpidem Tartrate (Ambien) 5 mg PO HS PRN PRN Reason: Insomnia Stop: 07/03/19 22:56 Last Admin: 05/05/19 21:30 Dose: 5 mg Zolpidem Tartrate (Ambien) 5 mg PO HS PRN PRN Reason: Insomnia Stop: 07/04/19 13:39 Assessment/Plan - Assessment Assessment: 64 YO FEMALE WITH EPIGASTRIC PAIN AND PRIOR HX CHOLECYSTECTOMY STATES SHE HAD EGD AND COLO FOR ABD PAIN WORK UP AN OUTPATIENT WITHIN THE YEAR LFTS AND LIPASE ARE NORMAL COULD BE GERD 1.AWAIT CT ABD/PELVIS 2.GASTRIC EMPTYING WAS ORDERED TO R/O GASTROPARESIS BUT NOT AVAILABLE HERE 3.CONT PROTONIX 4.GET OUTSIDE RECORDS OF EGD AND COLO
[2019-05-06] MEDS: Vitamin B Complex w/Vitamin C Tab PO SCH (08:18)
[2019-05-06] MEDS: Pantoprazole 40 mg EC Tab PO SCH (08:19)
[2019-05-06] MEDS: Sodium Chloride 0.9% 1,000 ML IV SCH ×2 (08:19→21:15)
[2019-05-06] MEDS: Levofloxacin 500mg/100mL Premix Bag IV SCH (08:19)
[2019-05-06] MEDS: Venelex 60gm Tube TP SCH (08:21)
--- NOTE | 2019-05-06 08:23 | Diagnostic Imaging Report ---
CT abdomen and pelvis without intravenous contrast Indication: Epigastric pain Comparison: None, Technique: Axial images were obtained from the lung bases to the bilateral proximal femurs without IV contrast. Coronal reconstructions were made. total DLP: 706, [id number] FINDINGS: Hypoventilatory changes of the lung bases are noted. Assessment of the solid organs is limited due to lack of IV contrast. No evidence of focal hepatic lesions. Patient is status post cholecystectomy. No focal splenic lesions. Minimal splenic hilar calcifications are noted. No focal pancreatic or adrenal lesions. Mild nonspecific perinephric inflammatory changes are noted. No free fluid. An IUD device is noted. Distended urinary bladder is noted. Fluid-filled loops of small and large bowel are seen without evidence of obstruction. No appendicitis. Postsurgical changes of the lumbar spine are seen with evidence of posterior fusion extending from L1 through L4 with multilevel laminectomies also noted and soft tissue density along the posterior paraspinal region. Mild inflammatory changes of posterior subcutaneous tissue are noted with subcutaneous edema. Degenerative changes of the spine are noted. Osteopenia is noted. Small fat-containing umbilical hernia is noted with probable small fluid collection in this region measuring 2.3 x 0.8 cm. Mildly distended stomach is noted with air-fluid level. IMPRESSION: Fluid-filled loops of bowel without evidence of obstruction. Mildly distended stomach with air-fluid level, nonspecific. No evidence of free fluid. Distended urinary bladder. Evidence of prior cholecystectomy. IUD device noted. Extensive postsurgical changes of the spine. Soft tissue density along the posterior paraspinal soft tissues noted with subcutaneous edema seen throughout these regions probably of surgical sequela. Small fat-containing umbilical hernia with probable small fluid collection in this region measuring 2.3 x 0.8 cm.
[2019-05-06] MEDS ORDERED: VITAMIN B COMPLEX PO SCH (09:00)
[2019-05-06] MEDS ORDERED: Non-Formulary Item 1 EA (Atorvastatin Calcium [Lipitor] 40 MG) PO SCH (09:00)
[2019-05-06] MEDS ORDERED: Non-Formulary Item 1 EA (Omeprazole [Omeprazole] 40 MG) PO SCH (09:00)
[2019-05-06] MEDS ORDERED: Non-Formulary Item 1 EA (Sitagliptin Phosphate [Januvia] 100 MG) PO SCH (09:00)
--- NOTE | 2019-05-06 09:43 | Consultation ---
DATE OF CONSULTATION: 05/04/2019 INFECTIOUS CONSULT HISTORY OF PRESENT ILLNESS: This is a 64-year-old female, came to the Emergency with complaint of profuse diarrhea for last 3 days, not getting better. Also, has nausea, unable to eat because of sickness, low-grade temperature and she decided to come to the hospital. There patient was evaluated and admitted with gastroenteritis. Stat infectious consultation was called. The patient's cultures ordered and antibiotic started. 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 FAMILY HISTORY: Diabetes present. REVIEW OF SYSTEMS: A 14-point review of system negative except above. ALLERGIES: No allergies. PHYSICAL EXAMINATION: GENERAL: Elderly female, alert, awake, oriented, not in distress. VITAL SIGNS: Temperature 98, pulse 94, respirations 16, blood pressure 125/58. HEENT: Mild pallor. No icterus or plaque. NECK: Supple. LUNGS: Breath sounds bilateral vesicular. ABDOMEN: Slightly distended, generalized tenderness. Bowel sounds increased. EXTREMITIES: No pedal edema. NEUROLOGIC: No focal. The patient has paraparesis. No seizure activity. LABORATORY DATA: As follows; white count is 12,000, hemoglobin is 7.7 grams, platelets 323. Creatinine is 1.4. Also radiology reports are pending. DIAGNOSIS: Gastroenteritis. The patient started on Levaquin and Flagyl. We will check for stool cultures and C. difficile. Repeat labs tomorrow. Supportive care, IV fluids for renal insufficiency. Accu-Chek to control diabetes and restart home medication. Thank you Dr. Agustin for this consultation. JOB# [id number]
[2019-05-06] MEDS ORDERED: Probiotic Screen MC PRN (11:10)
--- NOTE | 2019-05-06 11:40 | Internal Medicine Prog Note ---
Internal Medicine Subjective - Subjective Service Date: 05/06/19 Patient seen and examined:: with staff Patient is:: awake, verbal, in bed Patient Complaints of:: other (abdominal pain.) Per staff patient has:: no adverse event, no episodes of fall Internal Medicine Objective - Results Result Diagrams: 05/06/19 05:10 05/06/19 05:10 Recent Labs: Laboratory Last Values WBC 10.2 Th/cmm (4.8-10.8) 05/06/19 05:10 RBC 3.39 Mil/cmm (3.80-5.20) L 05/06/19 05:10 Hgb 8.8 gm/dL (12-16) L 05/06/19 05:10 Hct 26.7 % (41.0-60) L 05/06/19 05:10 MCV 78.7 fl (81-100) L 05/06/19 05:10 MCH 25.9 pg (27.0-31.0) L 05/06/19 05:10 MCHC Differential 32.9 pg (28.0-36.0) 05/06/19 05:10 RDW 16.7 % (11.5-20.0) 05/06/19 05:10 Plt Count 301 Th/cmm (150-400) 05/06/19 05:10 MPV 8.1 fl 05/06/19 05:10 Neutrophils % 58.9 % (40.0-80.0) 05/06/19 05:10 Lymphocytes % 33.5 % (20.0-50.0) 05/06/19 05:10 Monocytes % 5.3 % (2.0-10.0) 05/06/19 05:10 Eosinophils % 1.9 % (0.0-5.0) 05/06/19 05:10 Basophils % 0.4 % (0.0-2.0) 05/06/19 05:10 PT 9.6 SECONDS (9.5-11.5) 05/05/19 05:00 INR 0.92 (0.5-1.4) 05/05/19 05:00 PTT (Actin FS) 25.6 SECONDS (26.0-38.0) L 05/05/19 05:00 Sodium 140 mEq/L (136-145) 05/06/19 05:10 Potassium 4.5 mEq/L (3.5-5.1) 05/06/19 05:10 Chloride 110 mEq/L (98-107) H 05/06/19 05:10 Carbon Dioxide 22.5 mEq/L (21.0-31.0) 05/06/19 05:10 Anion Gap 12.0 (7.0-16.0) 05/06/19 05:10 BUN 19 mg/dL (7-25) 05/06/19 05:10 Creatinine 1.2 mg/dL (0.6-1.2) 05/06/19 05:10 Est GFR ( Amer) 57.8 ml/min (>90) 05/06/19 05:10 Est GFR (Non-Af Amer) 47.8 ml/min 05/06/19 05:10 BUN/Creatinine Ratio 15.8 05/06/19 05:10 Glucose 93 mg/dL (70-105) 05/06/19 05:10 POC Glucose 74 MG/DL (70 - 105) 05/06/19 05:22 Calcium 8.9 mg/dL (8.6-10.3) 05/06/19 05:10 Magnesium 1.3 mg/dL (1.9-2.7) L 05/04/19 12:50 Total Bilirubin 0.3 mg/dL (0.3-1.0) 05/05/19 16:20 Direct Bilirubin 0.06 mg/dL (0.0-0.2) 05/05/19 16:20 AST 15 U/L (13-39) 05/05/19 16:20 ALT 12 U/L (7-52) 05/05/19 16:20 Alkaline Phosphatase 84 U/L (34-104) 05/05/19 16:20 Total Protein 6.3 gm/dL (6.0-8.3) 05/05/19 16:20 Albumin 3.4 gm/dL (3.7-5.3) L 05/05/19 16:20 Globulin 2.9 gm/dL 05/05/19 16:20 Albumin/Globulin Ratio 1.2 (1.0-1.8) 05/05/19 16:20 Triglycerides 239 mg/dL (<150) H 05/05/19 05:00 Cholesterol 122 mg/dL (<200) 05/05/19 05:00 LDL Cholesterol Direct 61 mg/dL (75-193) L 05/05/19 05:00 HDL Cholesterol 28 mg/dL (23-92) 05/05/19 05:00 Lipase 52 U/L (11-82) 05/04/19 12:50 - Physical Exam Vitals and I&O: Vital Signs Temp 98.0 F 05/06/19 08:03 Pulse 89 05/06/19 08:21 Resp 20 05/06/19 08:03 BP 94/61 05/06/19 08:21 Pulse Ox 98 05/06/19 08:03 Intake & Output 05/05/19 05/06/19 05/06/19 18:59 06:59 18:59 Intake Total 3250 1440 Balance 3250 1440 Weight (lbs) 79.379 kg 79.379 kg Intake: Intake, IV Amount 1100 1200 Levofloxacin 500mg/100mL 100 500 mg In 100 ml @ 100 mls/hr IV Q24HR [facility] Rx#: [id number] Sodium Chloride 0.9% 1, 1000 1000 000 ml @ 100 mls/hr IV . Q10H [facility] Rx#:[id number] metroNIDAZOLE 500mg/NS 200 100mL 500 mg In 100 ml @ 100 mls/hr IV Q8HR [facility] Rx #:[id number] Oral 2150 240 Other: # Voids 3 3 # Bowel Movements 0 Weight Source Bedscale Bedscale Active Medications: Current Medications Acetaminophen/Hydrocodone Bitart ([place] 5mg/325mg) 1 tab PO QID PRN PRN Reason: Pain (Moderate) Stop: 07/04/19 11:55 Last Admin: 05/05/19 17:43 Dose: 1 tab Atorvastatin Calcium (Lipitor) 40 mg PO DAILY [facility] Stop: 07/05/19 08:59 Last Admin: 05/06/19 08:17 Dose: 40 mg [place] Oil/[place] Balsam/Trypsin (Venelex) 1 appl TP DAILY [facility] Stop: 07/04/19 09:59 Last Admin: 05/06/19 08:21 Dose: 1 appl Dextrose (D50w) 50 ml IVP PRN PRN PRN Reason: Blood Glucose less than 70 Stop: 07/03/19 17:26 Dextrose (Glutose 40%) 18.75 gm PO PRN PRN PRN Reason: Blood Glucose less than 70 Stop: 07/03/19 17:26 Diazepam (Valium) 5 mg PO BID PRN; Protocol PRN Reason: Anxiety Stop: 07/04/19 11:55 Diphenoxylate HCl/Atropine (Lomotil) 1 tab PO Q4HR PRN PRN Reason: Diarrhea Stop: 07/03/19 17:30 Gabapentin (Neurontin) 600 mg PO BID [facility] Stop: 07/04/19 16:59 Last Admin: 05/06/19 08:18 Dose: 600 mg Glimepiride (Amaryl) 4 mg PO BID [facility] Stop: 07/04/19 16:59 Last Admin: 05/06/19 08:21 Dose: Not Given Glucagon (Glucagen) 1 mg IM PRN PRN PRN Reason: Blood Glucose less than 70 Stop: 07/03/19 17:26 Sodium Chloride (Nacl 0.9%) 1,000 mls @ 100 mls/hr IV .Q10H [facility] Stop: 07/03/19 17:26 Last Admin: 05/06/19 08:19 Dose: 100 mls/hr Levofloxacin (Levaquin Pb) 500 mg in 100 mls @ 100 mls/hr IV Q24HR [facility] Stop: 07/04/19 07:59 Last Admin: 05/06/19 08:19 Dose: 100 mls/hr Metronidazole (Flagyl) 500 mg in 100 mls @ 100 mls/hr IV Q8HR [facility] Stop: 07/04/19 20:59 Last Infusion: 05/06/19 06:33 Dose: Infused Insulin Human Lispro (Humalog Insulin Sliding Scale) 0 units SUBQ Q6HR [facility]; Protocol Stop: 07/03/19 17:59 Last Admin: 05/06/19 05:28 Dose: Not Given Lactobacillus Rhamnosus (Culturelle 15b) 1 each PO DAILY [facility] Stop: 07/06/19 08:59 Lisinopril (Zestril) 20 mg PO BID [facility] Stop: 07/04/19 16:59 Last Admin: 05/06/19 08:21 Dose: Not Given Loperamide HCl (Imodium) 2 mg PO Q6H PRN PRN Reason: Diarrhea Stop: 07/04/19 11:55 Metformin HCl (Glucophage) 1,000 mg PO BID [facility] Stop: 07/04/19 16:59 Last Admin: 05/06/19 08:21 Dose: Not Given Miscellaneous (Probiotic Screen) 1 ea MC PRN PRN PRN Reason: PROTOCOL Stop: 07/05/19 11:09 Naproxen (Naprosyn) 500 mg PO BID [facility] Stop: 07/04/19 16:59 Last Admin: 05/06/19 08:18 Dose: 500 mg Ondansetron HCl (Zofran) 4 mg IV Q6H PRN PRN Reason: Nausea / Vomiting Stop: 07/04/19 11:33 Last Admin: 05/05/19 19:18 Dose: 4 mg Pantoprazole Sodium (Protonix) 40 mg PO DAILY [facility] Stop: 07/05/19 08:59 Last Admin: 05/06/19 08:19 Dose: 40 mg Quetiapine Fumarate (Seroquel) 50 mg PO HS [facility]; Protocol Stop: 07/04/19 20:59 Last Admin: 05/05/19 20:02 Dose: 50 mg Sitagliptin Phosphate (Januvia) 100 mg PO DAILY [facility] Stop: 07/05/19 08:59 Last Admin: 05/06/19 08:21 Dose: Not Given Vitamin B Complex/Vit C/Folic Acid (Vitamin B Complex W/Vitamin C) 1 tab PO DAILY [facility] Stop: 07/05/19 08:59 Last Admin: 05/06/19 08:18 Dose: 1 tab Zolpidem Tartrate (Ambien) 5 mg PO HS PRN PRN Reason: Insomnia Stop: 07/04/19 13:39 Physical Exam: Patient states she has less abdominal pain today. General: alert HEENT: NC/AT, PERRLA Neck: Supple, No JVD Lungs: CTAB Cardiovascular: RRR, Normal S1 Abdomen: soft, non-tender Extremities: clear Neurological: no change Internal Medicine Assmt/Plan - Assessment Assessment: Epigastric pain. Hx of Cholecystectomy. Possible Gerd. Acute Gastroenteritis. Unable to walk, secondary to S/p back surgery. Generalized weakness. Leukocytosis. Microcytic anemia. Hypertension. Diabetes Mellitus. Dyslipidemia. - Plan Plan: Continuation of care. Monitor Labs. Accu-check daily, continue DM meds as directed. Monitor vitals, continue B/P meds as directed. Continue present meds as directed. Monitor Diet/Nutritional support. Pain Management. Physical therapy/Occupational therapy. Supportive care. Fall precaution, frequent nursing rounds, and as needed restraints to prevent fall. Continue collaborating with consulting specialists, case management and nursing team. Will Monitor patient and continue present care management. Nutritional Asmnt/Malnutr-PDOC - Dietary Evaluation Malnutrition Findings (Please click <Entered> for more info): Nutritional Asmnt/Malnutrition Start: 05/05/19 16: 26 Text: Status: Complete Freq: Protocol: Document 05/05/19 16:32 STACEY (Rec: 05/05/19 16:37 [email or web address] [email or web address]) Nutritional Asmnt/Malnutrition Patient General Information Nutritional Screening Moderate Risk Consult Diagnosis Acute Gastroenteritis Pertinent Medical Hx/Surgical Hx HTN, DM, Dyslipidemia, Hyperlipidemia Subjective Information IA/Consult: Elevated blood sugar, Pressure Ulcers (2) on Coccygeal area Pt is a 64-year-old female admitted on 05/04 c/o abdominal pain and diarrhea x 3 days. Per ED physician chart (05/04), Pt had nausea but no vomiting. Per Meal/Nutrition Activity Record, Pt ate 100% dinner on 05/04. Consult order received for glucose 184 on 05/04 and glucose level trend WNL on 05/05 with Glucose 89 noted. Per wound care note (05/05), Pressure ulcer (unable to determine stage) on coccygeal area 2x with periwound intact and surrounding scar tissue noted. Visited Pt in room, Pt stated she checks glucose level 2x/day at home and blood glucose target is 90-120 per MD. She tried to have low- sugar food items for usual diet at home. Pt stated she does not need diabetes education at this time. Pt ate 25% breakfast and 0% lunch d/ t nausea/pain. Sopke to MARTHA Chiu, Added Glucerna TID to meet nutrient needs and to support wound healing. Will continue monitor PO intake and wound healing progress. HT: 52 WT: 178 LB 12.8 oz (80.9 kg) ADJ BW: 62.42 kg BMI: 32.70 (Obese) GI: Nausea, Vomiting, Abdominal pain, diarrhea, Soft , Non-Tender, Large, Round BM: Not noted I/O: 2630/Not Noted Skin: Pale, Warm, Dry, Elastic , Scar on lower back, Skin tear and reddened on coccyx Wound: Pressure ulcer (unable to determine stage) on coccygeal area 2x with periwound intact and surrounding scar tissue Robby: 14 Diet Order: [facility] [place] Estimated Energy Needs: ( Pressure Ulcer Stage III-IV Small/Undraining, ADJ BW) 2025-8434 kcals (28-33 kcals/ kg) 75-94 g Pro (1.2-1.5 g/kg) 1019-2058 ml (30-40 ml/kg) Current Diet Order/ Nutrition Support [facility] [place] Pertinent Medications D50w (PRN), Glutose 40% (PRN), Lomotil (PRN), Glucagen (PRN) , INS-SS, Nacl 0.9% Pertinent Labs 05/05: Hgb/Hct 8.8/26.6, BUN/Cr 21/1.3, POC glucose (last 24 hours) 114, 93, 107 05/04: Hgb/Hct 9.7/29.5, BUN/Cr 24/1.4, Glucose 184 Nutritional Hx/Data Height 1.57 m Height (Calculated Centimeters) 157.5 Current Weight (lbs) 80.739 kg Weight (Calculated Kilograms) 80.7 Weight (Calculated Grams) 14933.4 [place] Body Weight 50.1 kg % [place] Body Weight 161 Body Mass Index (BMI) 32.5 Weight Status Obese GI Symptoms GI Symptoms Nausea Vomitting Diarrhea Last BM Not noted Skin Integrity/Comment: Skin: Pale, Warm, Dry, Elastic , Scar on lower back, Skin tear and reddened on coccyx Wound: Pressure ulcer (unable to determine stage) on coccygeal area 2x with periwound intact and surrounding scar tissue Robby: 14 Current %PO Negligible < 25% Estimated Nutritional Goals BEE in Kcals: Adj wt of IBW Calories/Kcals/Kg 28-33 Kcals Calculated 7084-7416 Protein: Adj wt of IBW Protein g/k.2-1.5 Protein Calculated 75-94 Fluid: ml 6915-7955 ml (30-40 ml/kg) Nutritional Problem 2. Problem Problem Increased calories and protein needs Etiology r/t wound healing Signs/Symptoms: aeb Pressure ulcer (unable to determine stage) on coccygeal area 1. Problem Problem Inadequate oral intake Etiology r/t nausea/pain/poor appetite Signs/Symptoms: aeb PO intake 0-25% breakfast and lunch on 05/05 per Pt self- reported. Malnutrition Related to Morbid Obesity Malnutrition related to morbid obesity No Intervention/Recommendation Comments 1.Continue with [facility] [place] diet as ordered. 2.Continue anti-hyperglycemic medication for glucose control per MD order. 3.Added Glucerna TID to meet nutrient needs and to support wound healing. 4.RN to encourage improved PO intake. 5.Continue wound care recommendation per wound care note. Expected Outcomes/Goals Expected Outcomes/Goals 1.PO intake to meet 75% of nutritional needs. 2.Monitor PO intake, wt, skin integrity to trend WNL, and nutrition related labs to trend WNL. 3.F/U as high risk in 2-3 days , 05/07-05/08
[2019-05-06] MEDS: Hydrocodone/APAP 5mg/325mg Tab PO PRN ×2 (14:54→21:21)
--- NOTE | 2019-05-06 18:40 | Infectious Disease Prog Note ---
Infectious Disease Subjective - Review of Systems Service Date: 05/06/19 Subjective: cc gastroenteritis hpi cx neg wbc normal ros no fevr o.e vs chest chon abs d soft ext pilse Vital Signs - 24 hr 05/05/19 05/06/19 05/06/19 20:00 08:03 08:21 Temp 97.8 F 98.0 F HR 75 89 89 RR 20 20 BP 116/69 94/61 94/61 O2 Sat % 99 98 05/06/19 05/06/19 12:05 16:23 Temp 98.6 F 98.2 F HR 93 74 RR 20 20 BP 116/64 122/64 O2 Sat % 100 100 Laboratory Results - last 24 hr 05/05/19 05/05/19 05/06/19 16:20 23:48 05:10 WBC 10.2 RBC 3.39 L Hgb 8.8 L Hct 26.7 L MCV 78.7 L MCH 25.9 L MCHC Differential 32.9 RDW 16.7 Plt Count 301 MPV 8.1 Neutrophils % 58.9 Lymphocytes % 33.5 Monocytes % 5.3 Eosinophils % 1.9 Basophils % 0.4 Sodium Potassium Chloride Carbon Dioxide Anion Gap BUN Creatinine Est GFR ( Amer) Est GFR (Non-Af Amer) BUN/Creatinine Ratio Glucose POC Glucose 154 H Calcium Total Bilirubin 0.3 05/06/19 05/06/19 05/06/19 05:10 05:22 11:34 WBC RBC Hgb Hct MCV MCH MCHC Differential RDW Plt Count MPV Neutrophils % Lymphocytes % Monocytes % Eosinophils % Basophils % Sodium 140 Potassium 4.5 Chloride 110 H Carbon Dioxide 22.5 Anion Gap 12.0 BUN 19 Creatinine 1.2 Est GFR ( Amer) 57.8 Est GFR (Non-Af Amer) 47.8 BUN/Creatinine Ratio 15.8 Glucose 93 POC Glucose 74 144 H Calcium 8.9 Total Bilirubin 05/06/19 16:52 WBC RBC Hgb Hct MCV MCH MCHC Differential RDW Plt Count MPV Neutrophils % Lymphocytes % Monocytes % Eosinophils % Basophils % Sodium Potassium Chloride Carbon Dioxide Anion Gap BUN Creatinine Est GFR ( Amer) Est GFR (Non-Af Amer) BUN/Creatinine Ratio Glucose POC Glucose 203 H Calcium Total Bilirubin Diagnoses PARAPLEGIA, UNSPECIFIED (05/04/19) NONINFECTIVE GASTROENTERITIS AND COLITIS, UNSPECIFIED (05/04/19) WEAKNESS (05/04/19) Current Medications Acetaminophen/Hydrocodone Bitart ([place] 5mg/325mg) 1 tab PO QID PRN PRN Reason: Pain (Moderate) Stop: 07/04/19 11:55 Last Admin: 05/06/19 14:54 Dose: 1 tab Atorvastatin Calcium (Lipitor) 40 mg PO DAILY [facility] Stop: 07/05/19 08:59 Last Admin: 05/06/19 08:17 Dose: 40 mg [place] Oil/American Balsam/Trypsin (Venelex) 1 appl TP DAILY [facility] Stop: 07/04/19 09:59 Last Admin: 05/06/19 08:21 Dose: 1 appl Dextrose (D50w) 50 ml IVP PRN PRN PRN Reason: Blood Glucose less than 70 Stop: 07/03/19 17:26 Dextrose (Glutose 40%) 18.75 gm PO PRN PRN PRN Reason: Blood Glucose less than 70 Stop: 07/03/19 17:26 Diazepam (Valium) 5 mg PO BID PRN; Protocol PRN Reason: Anxiety Stop: 07/04/19 11:55 Diphenoxylate HCl/Atropine (Lomotil) 1 tab PO Q4HR PRN PRN Reason: Diarrhea Stop: 07/03/19 17:30 Gabapentin (Neurontin) 600 mg PO BID [facility] Stop: 07/04/19 16:59 Last Admin: 05/06/19 16:57 Dose: 600 mg Glimepiride (Amaryl) 4 mg PO BID [facility] Stop: 07/04/19 16:59 Last Admin: 05/06/19 16:57 Dose: 4 mg Glucagon (Glucagen) 1 mg IM PRN PRN PRN Reason: Blood Glucose less than 70 Stop: 07/03/19 17:26 Sodium Chloride (Nacl 0.9%) 1,000 mls @ 100 mls/hr IV .Q10H [facility] Stop: 07/03/19 17:26 Last Admin: 05/06/19 08:19 Dose: 100 mls/hr Levofloxacin (Levaquin Pb) 500 mg in 100 mls @ 100 mls/hr IV Q24HR [facility] Stop: 07/04/19 07:59 Last Admin: 05/06/19 08:19 Dose: 100 mls/hr Metronidazole (Flagyl) 500 mg in 100 mls @ 100 mls/hr IV Q8HR [facility] Stop: 07/04/19 20:59 Last Admin: 05/06/19 13:04 Dose: 100 mls/hr Insulin Human Lispro (Humalog Insulin Sliding Scale) 0 units SUBQ Q6HR [facility]; Protocol Stop: 07/03/19 17:59 Last Admin: 05/06/19 17:02 Dose: 4 units Lactobacillus Rhamnosus (Culturelle 15b) 1 each PO DAILY [facility] Stop: 07/06/19 08:59 Lisinopril (Zestril) 20 mg PO BID [facility] Stop: 07/04/19 16:59 Last Admin: 05/06/19 16:57 Dose: Not Given Loperamide HCl (Imodium) 2 mg PO Q6H PRN PRN Reason: Diarrhea Stop: 07/04/19 11:55 Metformin HCl (Glucophage) 1,000 mg PO BID [facility] Stop: 07/04/19 16:59 Last Admin: 05/06/19 16:57 Dose: 1,000 mg Miscellaneous (Probiotic Screen) 1 ea MC PRN PRN PRN Reason: PROTOCOL Stop: 07/05/19 11:09 Naproxen (Naprosyn) 500 mg PO BID [facility] Stop: 07/04/19 16:59 Last Admin: 05/06/19 16:57 Dose: Not Given Ondansetron HCl (Zofran) 4 mg IV Q6H PRN PRN Reason: Nausea / Vomiting Stop: 07/04/19 11:33 Last Admin: 05/05/19 19:18 Dose: 4 mg Pantoprazole Sodium (Protonix) 40 mg PO DAILY [facility] Stop: 07/05/19 08:59 Last Admin: 05/06/19 08:19 Dose: 40 mg Quetiapine Fumarate (Seroquel) 50 mg PO HS [facility]; Protocol Stop: 07/04/19 20:59 Last Admin: 05/05/19 20:02 Dose: 50 mg Sitagliptin Phosphate (Januvia) 100 mg PO DAILY [facility] Stop: 07/05/19 08:59 Last Admin: 05/06/19 08:21 Dose: Not Given Vitamin B Complex/Vit C/Folic Acid (Vitamin B Complex W/Vitamin C) 1 tab PO DAILY [facility] Stop: 07/05/19 08:59 Last Admin: 05/06/19 08:18 Dose: 1 tab Zolpidem Tartrate (Ambien) 5 mg PO HS PRN PRN Reason: Insomnia Stop: 07/04/19 13:39 Infectious Disease Objective - Results Result Diagrams: 05/06/19 05:10 05/06/19 05:10 Recent Labs: Laboratory Last Values WBC 10.2 Th/cmm (4.8-10.8) 05/06/19 05:10 RBC 3.39 Mil/cmm (3.80-5.20) L 05/06/19 05:10 Hgb 8.8 gm/dL (12-16) L 05/06/19 05:10 Hct 26.7 % (41.0-60) L 05/06/19 05:10 MCV 78.7 fl (81-100) L 05/06/19 05:10 MCH 25.9 pg (27.0-31.0) L 05/06/19 05:10 MCHC Differential 32.9 pg (28.0-36.0) 05/06/19 05:10 RDW 16.7 % (11.5-20.0) 05/06/19 05:10 Plt Count 301 Th/cmm (150-400) 05/06/19 05:10 MPV 8.1 fl 05/06/19 05:10 Neutrophils % 58.9 % (40.0-80.0) 05/06/19 05:10 Lymphocytes % 33.5 % (20.0-50.0) 05/06/19 05:10 Monocytes % 5.3 % (2.0-10.0) 05/06/19 05:10 Eosinophils % 1.9 % (0.0-5.0) 05/06/19 05:10 Basophils % 0.4 % (0.0-2.0) 05/06/19 05:10 PT 9.6 SECONDS (9.5-11.5) 05/05/19 05:00 INR 0.92 (0.5-1.4) 05/05/19 05:00 PTT (Actin FS) 25.6 SECONDS (26.0-38.0) L 05/05/19 05:00 Sodium 140 mEq/L (136-145) 05/06/19 05:10 Potassium 4.5 mEq/L (3.5-5.1) 05/06/19 05:10 Chloride 110 mEq/L (98-107) H 05/06/19 05:10 Carbon Dioxide 22.5 mEq/L (21.0-31.0) 05/06/19 05:10 Anion Gap 12.0 (7.0-16.0) 05/06/19 05:10 BUN 19 mg/dL (7-25) 05/06/19 05:10 Creatinine 1.2 mg/dL (0.6-1.2) 05/06/19 05:10 Est GFR ( Amer) 57.8 ml/min (>90) 05/06/19 05:10 Est GFR (Non-Af Amer) 47.8 ml/min 05/06/19 05:10 BUN/Creatinine Ratio 15.8 05/06/19 05:10 Glucose 93 mg/dL (70-105) 05/06/19 05:10 POC Glucose 203 MG/DL (70 - 105) H 05/06/19 16:52 Calcium 8.9 mg/dL (8.6-10.3) 05/06/19 05:10 Magnesium 1.3 mg/dL (1.9-2.7) L 05/04/19 12:50 Total Bilirubin 0.3 mg/dL (0.3-1.0) 05/05/19 16:20 Direct Bilirubin 0.06 mg/dL (0.0-0.2) 05/05/19 16:20 AST 15 U/L (13-39) 05/05/19 16:20 ALT 12 U/L (7-52) 05/05/19 16:20 Alkaline Phosphatase 84 U/L (34-104) 05/05/19 16:20 Total Protein 6.3 gm/dL (6.0-8.3) 05/05/19 16:20 Albumin 3.4 gm/dL (3.7-5.3) L 05/05/19 16:20 Globulin 2.9 gm/dL 05/05/19 16:20 Albumin/Globulin Ratio 1.2 (1.0-1.8) 05/05/19 16:20 Triglycerides 239 mg/dL (<150) H 05/05/19 05:00 Cholesterol 122 mg/dL (<200) 05/05/19 05:00 LDL Cholesterol Direct 61 mg/dL (75-193) L 05/05/19 05:00 HDL Cholesterol 28 mg/dL (23-92) 05/05/19 05:00 Lipase 52 U/L (11-82) 05/04/19 12:50 - Physical Exam Vitals and I&O: Vital Signs Temp 98.2 F 05/06/19 16:23 Pulse 74 05/06/19 16:23 Resp 20 05/06/19 16:23 BP 122/64 05/06/19 16:23 Pulse Ox 100 05/06/19 16:23 Intake & Output 05/05/19 05/06/19 05/06/19 18:59 06:59 18:59 Intake Total 3250 1440 750 Balance 3250 1440 750 Weight (lbs) 79.379 kg 79.379 kg 79.379 kg Intake: Intake, IV Amount 1100 1200 Levofloxacin 500mg/100mL 100 500 mg In 100 ml @ 100 mls/hr IV Q24HR [facility] Rx#: [id number] Sodium Chloride 0.9% 1, 1000 1000 000 ml @ 100 mls/hr IV . Q10H [facility] Rx#:[id number] metroNIDAZOLE 500mg/NS 200 100mL 500 mg In 100 ml @ 100 mls/hr IV Q8HR [facility] Rx #:[id number] Oral 2150 240 750 Other: # Voids 3 3 3 # Bowel Movements 0 Weight Source Bedscale Bedscale Bedscale Active Medications: Current Medications Acetaminophen/Hydrocodone Bitart ([place] 5mg/325mg) 1 tab PO QID PRN PRN Reason: Pain (Moderate) Stop: 07/04/19 11:55 Last Admin: 05/06/19 14:54 Dose: 1 tab Atorvastatin Calcium (Lipitor) 40 mg PO DAILY [facility] Stop: 07/05/19 08:59 Last Admin: 05/06/19 08:17 Dose: 40 mg [place] Oil/American Balsam/Trypsin (Venelex) 1 appl TP DAILY [facility] Stop: 07/04/19 09:59 Last Admin: 05/06/19 08:21 Dose: 1 appl Dextrose (D50w) 50 ml IVP PRN PRN PRN Reason: Blood Glucose less than 70 Stop: 07/03/19 17:26 Dextrose (Glutose 40%) 18.75 gm PO PRN PRN PRN Reason: Blood Glucose less than 70 Stop: 07/03/19 17:26 Diazepam (Valium) 5 mg PO BID PRN; Protocol PRN Reason: Anxiety Stop: 07/04/19 11:55 Diphenoxylate HCl/Atropine (Lomotil) 1 tab PO Q4HR PRN PRN Reason: Diarrhea Stop: 07/03/19 17:30 Gabapentin (Neurontin) 600 mg PO BID [facility] Stop: 07/04/19 16:59 Last Admin: 05/06/19 16:57 Dose: 600 mg Glimepiride (Amaryl) 4 mg PO BID [facility] Stop: 07/04/19 16:59 Last Admin: 05/06/19 16:57 Dose: 4 mg Glucagon (Glucagen) 1 mg IM PRN PRN PRN Reason: Blood Glucose less than 70 Stop: 07/03/19 17:26 Sodium Chloride (Nacl 0.9%) 1,000 mls @ 100 mls/hr IV .Q10H [facility] Stop: 07/03/19 17:26 Last Admin: 05/06/19 08:19 Dose: 100 mls/hr Levofloxacin (Levaquin Pb) 500 mg in 100 mls @ 100 mls/hr IV Q24HR [facility] Stop: 07/04/19 07:59 Last Admin: 05/06/19 08:19 Dose: 100 mls/hr Metronidazole (Flagyl) 500 mg in 100 mls @ 100 mls/hr IV Q8HR [facility] Stop: 07/04/19 20:59 Last Admin: 05/06/19 13:04 Dose: 100 mls/hr Insulin Human Lispro (Humalog Insulin Sliding Scale) 0 units SUBQ Q6HR [facility]; Protocol Stop: 07/03/19 17:59 Last Admin: 05/06/19 17:02 Dose: 4 units Lactobacillus Rhamnosus (Culturelle 15b) 1 each PO DAILY [facility] Stop: 07/06/19 08:59 Lisinopril (Zestril) 20 mg PO BID [facility] Stop: 07/04/19 16:59 Last Admin: 05/06/19 16:57 Dose: Not Given Loperamide HCl (Imodium) 2 mg PO Q6H PRN PRN Reason: Diarrhea Stop: 07/04/19 11:55 Metformin HCl (Glucophage) 1,000 mg PO BID [facility] Stop: 07/04/19 16:59 Last Admin: 05/06/19 16:57 Dose: 1,000 mg Miscellaneous (Probiotic Screen) 1 ea [facility] PRN PRN PRN Reason: PROTOCOL Stop: 07/05/19 11:09 Naproxen (Naprosyn) 500 mg PO BID [facility] Stop: 07/04/19 16:59 Last Admin: 05/06/19 16:57 Dose: Not Given Ondansetron HCl (Zofran) 4 mg IV Q6H PRN PRN Reason: Nausea / Vomiting Stop: 07/04/19 11:33 Last Admin: 05/05/19 19:18 Dose: 4 mg Pantoprazole Sodium (Protonix) 40 mg PO DAILY [facility] Stop: 07/05/19 08:59 Last Admin: 05/06/19 08:19 Dose: 40 mg Quetiapine Fumarate (Seroquel) 50 mg PO HS [facility]; Protocol Stop: 07/04/19 20:59 Last Admin: 05/05/19 20:02 Dose: 50 mg Sitagliptin Phosphate (Januvia) 100 mg PO DAILY [facility] Stop: 07/05/19 08:59 Last Admin: 05/06/19 08:21 Dose: Not Given Vitamin B Complex/Vit C/Folic Acid (Vitamin B Complex W/Vitamin C) 1 tab PO DAILY [facility] Stop: 07/05/19 08:59 Last Admin: 05/06/19 08:18 Dose: 1 tab Zolpidem Tartrate (Ambien) 5 mg PO HS PRN PRN Reason: Insomnia Stop: 07/04/19 13:39 Nutritional Asmnt/Malnutr-PDOC - Dietary Evaluation Malnutrition Findings (Please click <Entered> for more info): Nutritional Asmnt/Malnutrition Start: 05/05/19 16: 26 Text: Status: Complete Freq: Protocol: Document 05/05/19 16:32 STACEY (Rec: 05/05/19 16:37 [email or web address]) Nutritional Asmnt/Malnutrition Patient General Information Nutritional Screening Moderate Risk Consult Diagnosis Acute Gastroenteritis Pertinent Medical Hx/Surgical Hx HTN, DM, Dyslipidemia, Hyperlipidemia Subjective Information IA/Consult: Elevated blood sugar, Pressure Ulcers (2) on Coccygeal area Pt is a 64-year-old female admitted on 05/04 c/o abdominal pain and diarrhea x 3 days. Per ED physician chart (05/04), Pt had nausea but no vomiting. Per Meal/Nutrition Activity Record, Pt ate 100% dinner on 05/04. Consult order received for glucose 184 on 05/04 and glucose level trend WNL on 05/05 with Glucose 89 noted. Per wound care note (05/05), Pressure ulcer (unable to determine stage) on coccygeal area 2x with periwound intact and surrounding scar tissue noted. Visited Pt in room, Pt stated she checks glucose level 2x/day at home and blood glucose target is 90-120 per MD. She tried to have low- sugar food items for usual diet at home. Pt stated she does not need diabetes education at this time. Pt ate 25% breakfast and 0% lunch d/ t nausea/pain. Sopke to MARTHA Chiu, Added Glucerna TID to meet nutrient needs and to support wound healing. Will continue monitor PO intake and wound healing progress. HT: 52 WT: 178 LB 12.8 oz (80.9 kg) ADJ BW: 62.42 kg BMI: 32.70 (Obese) GI: Nausea, Vomiting, Abdominal pain, diarrhea, Soft , Non-Tender, Large, Round BM: Not noted I/O: 2630/Not Noted Skin: Pale, Warm, Dry, Elastic , Scar on lower back, Skin tear and reddened on coccyx Wound: Pressure ulcer (unable to determine stage) on coccygeal area 2x with periwound intact and surrounding scar tissue Robby: 14 Diet Order: [facility] [place] Estimated Energy Needs: ( Pressure Ulcer Stage III-IV Small/Undraining, ADJ BW) 1806-3639 kcals (28-33 kcals/ kg) 75-94 g Pro (1.2-1.5 g/kg) 6860-3052 ml (30-40 ml/kg) Current Diet Order/ Nutrition Support [facility] [place] Pertinent Medications D50w (PRN), Glutose 40% (PRN), Lomotil (PRN), Glucagen (PRN) , INS-SS, Nacl 0.9% Pertinent Labs 05/05: Hgb/Hct 8.8/26.6, BUN/Cr 21/1.3, POC glucose (last 24 hours) 114, 93, 107 05/04: Hgb/Hct 9.7/29.5, BUN/Cr 24/1.4, Glucose 184 Nutritional Hx/Data Height 1.57 m Height (Calculated Centimeters) 157.5 Current Weight (lbs) 80.739 kg Weight (Calculated Kilograms) 80.7 Weight (Calculated Grams) 28914.4 [place] Body Weight 50.1 kg % [place] Body Weight 161 Body Mass Index (BMI) 32.5 Weight Status Obese GI Symptoms GI Symptoms Nausea Vomitting Diarrhea Last BM Not noted Skin Integrity/Comment: Skin: Pale, Warm, Dry, Elastic , Scar on lower back, Skin tear and reddened on coccyx Wound: Pressure ulcer (unable to determine stage) on coccygeal area 2x with periwound intact and surrounding scar tissue Robby: 14 Current %PO Negligible < 25% Estimated Nutritional Goals BEE in Kcals: Adj wt of IBW Calories/Kcals/Kg 28-33 Kcals Calculated 5394-0922 Protein: Adj wt of IBW Protein g/k.2-1.5 Protein Calculated 75-94 Fluid: ml 5890-8976 ml (30-40 ml/kg) Nutritional Problem 3. Problem Problem Altered nutrition related labs Etiology r/t endocrine dysfunction and HX of DM Signs/Symptoms: (05/04) Glucose 184 2. Problem Problem Increased calories and protein needs Etiology r/t wound healing Signs/Symptoms: aeb Pressure ulcer (unable to determine stage) on coccygeal area 1. Problem Problem Inadequate oral intake Etiology r/t nausea/pain/poor appetite Signs/Symptoms: aeb PO intake 0-25% breakfast and lunch on 05/05 per Pt self- reported. Malnutrition Related to Morbid Obesity Malnutrition related to morbid obesity No Intervention/Recommendation Comments 1.Continue with [facility] [place] diet as ordered. 2.Continue anti-hyperglycemic medication for glucose control per MD order. 3.Added Glucerna TID to meet nutrient needs and to support wound healing. 4.RN to encourage improved PO intake. 5.Continue wound care recommendation per wound care note. Expected Outcomes/Goals Expected Outcomes/Goals 1.PO intake to meet 75% of nutritional needs. 2.Monitor PO intake, wt, skin integrity to trend WNL, and nutrition related labs to trend WNL. 3.F/U as high risk in 2-3 days , 05/07-05/08
[2019-05-07] MEDS: metroNIDAZOLE 500mg/NS 100mL 500 MG/100 ML BAG IV SCH ×3 (05:30→20:25)
[2019-05-07 05:47] LABS: % BASOPHILS 0.1 % (0.0-2.0); % EOSINOPHILS 2.1 % (0.0-5.0); % LYMPHOCYTES 33.3 % (20.0-50.0); % MONOCYTES 2.8 % (2.0-10.0); % NEUTROPHILS 61.7 % (40.0-80.0); EOSINOPHILE ABSOLUTE 0.2 Th/cmm (0.1-0.4); HEMATOCRIT 26.2 % (41.0-60); HEMOGLOBIN 8.5 gm/dL (12-16); LYMPHOCYTE ABSOLUTE 3.1 Th/cmm (1.5-3.0); MEAN CORPUSCULAR HEMOGLOBIN 25.5 pg (27.0-31.0); MEAN CORPUSCULAR HGB CONC 32.3 pg (28.0-36.0); MONOCYTE ABSOLUTE 0.3 Th/cmm (0.3-1.0); NEUTROPHILE ABSOLUTE 5.6 Th/cmm (1.8-8.0); PLATELET COUNT 293 Th/cmm (150-400); RED BLOOD COUNT 3.32 Mil/cmm (3.80-5.20); RED CELL DISTRIBUTION WIDTH 16.4 % (11.5-20.0); WHITE BLOOD COUNT 9.2 Th/cmm (4.8-10.8)
[2019-05-07 05:57] LABS: ANION GAP 11.9 (7.0-16.0); CALCIUM SERUM 8.2 mg/dL (8.6-10.3); CARBON DIOXIDE 21.3 mEq/L (21.0-31.0); CREATININE - SERUM 1.3 mg/dL (0.6-1.2); GFR AFRICAN-AMERICAN 52.7 ml/min (>90); GFR NON AFRICAN-AMERICAN 43.6 ml/min; MAGNESIUM 1.4 mg/dL (1.9-2.7); POTASSIUM SERUM 4.2 mEq/L (3.5-5.1)
[2019-05-07] MEDS: INSULIN LISPRO SLIDING SCALE 100 UNITS/ML UNIT SUBQ SCH ×4 (07:36→20:29)
[2019-05-07] MEDS: Levofloxacin 500mg/100mL Premix Bag IV SCH (08:52)
[2019-05-07] MEDS: Pantoprazole 40 mg EC Tab PO SCH (08:52)
[2019-05-07] MEDS: Lactobacillus Rhamnosus GG 15 Billion CFU CAP.SPRINK PO SCH (09:07)
[2019-05-07] MEDS: Vitamin B Complex w/Vitamin C Tab PO SCH (09:07)
[2019-05-07] MEDS: Venelex 60gm Tube TP SCH (09:16)
--- NOTE | 2019-05-07 09:26 | Diagnostic Imaging Report ---
KUB single view HISTORY: Pain, no bowel movement COMPARISON: CT abdomen and pelvis performed on 05/05/2019 FINDINGS: There is copious stool throughout the colon. This is greatest in the right colon. There is evidence of prior cholecystectomy and spinal fusion. IUD is also noted. IMPRESSION: Copious stool throughout the colon greatest within the right colon. Correlate clinically for constipation Postsurgical changes as above.
[2019-05-07] MEDS: Sodium Chloride 0.9% 1,000 ML IV SCH (12:49)
--- NOTE | 2019-05-07 13:16 | GI Progress Note ---
Subjective - Review of Systems Service Date: 05/07/19 Subjective: Reports pain and diarrhea have resolved GI OBJECTIVE - Results Result Diagrams: 05/07/19 05:30 05/07/19 05:30 Recent Labs: Laboratory Last Values WBC 9.2 Th/cmm (4.8-10.8) 05/07/19 05:30 RBC 3.32 Mil/cmm (3.80-5.20) L 05/07/19 05:30 Hgb 8.5 gm/dL (12-16) L 05/07/19 05:30 Hct 26.2 % (41.0-60) L 05/07/19 05:30 MCV 79.0 fl (81-100) L 05/07/19 05:30 MCH 25.5 pg (27.0-31.0) L 05/07/19 05:30 MCHC Differential 32.3 pg (28.0-36.0) 05/07/19 05:30 RDW 16.4 % (11.5-20.0) 05/07/19 05:30 Plt Count 293 Th/cmm (150-400) 05/07/19 05:30 MPV 7.9 fl 05/07/19 05:30 Neutrophils % 61.7 % (40.0-80.0) 05/07/19 05:30 Lymphocytes % 33.3 % (20.0-50.0) 05/07/19 05:30 Monocytes % 2.8 % (2.0-10.0) 05/07/19 05:30 Eosinophils % 2.1 % (0.0-5.0) 05/07/19 05:30 Basophils % 0.1 % (0.0-2.0) 05/07/19 05:30 PT 9.6 SECONDS (9.5-11.5) 05/05/19 05:00 INR 0.92 (0.5-1.4) 05/05/19 05:00 PTT (Actin FS) 25.6 SECONDS (26.0-38.0) L 05/05/19 05:00 Sodium 143 mEq/L (136-145) 05/07/19 05:30 Potassium 4.2 mEq/L (3.5-5.1) 05/07/19 05:30 Chloride 114 mEq/L (98-107) H 05/07/19 05:30 Carbon Dioxide 21.3 mEq/L (21.0-31.0) 05/07/19 05:30 Anion Gap 11.9 (7.0-16.0) 05/07/19 05:30 BUN 17 mg/dL (7-25) 05/07/19 05:30 Creatinine 1.3 mg/dL (0.6-1.2) H 05/07/19 05:30 Est GFR ( Amer) 52.7 ml/min (>90) 05/07/19 05:30 Est GFR (Non-Af Amer) 43.6 ml/min 05/07/19 05:30 BUN/Creatinine Ratio 13.1 05/07/19 05:30 Glucose 67 mg/dL (70-105) L 05/07/19 05:30 POC Glucose 120 MG/DL (70 - 105) H 05/07/19 12:03 Calcium 8.2 mg/dL (8.6-10.3) L 05/07/19 05:30 Magnesium 1.4 mg/dL (1.9-2.7) L 05/07/19 05:30 Total Bilirubin 0.3 mg/dL (0.3-1.0) 05/05/19 16:20 Direct Bilirubin 0.06 mg/dL (0.0-0.2) 05/05/19 16:20 AST 15 U/L (13-39) 05/05/19 16:20 ALT 12 U/L (7-52) 05/05/19 16:20 Alkaline Phosphatase 84 U/L (34-104) 05/05/19 16:20 Total Protein 6.3 gm/dL (6.0-8.3) 05/05/19 16:20 Albumin 3.4 gm/dL (3.7-5.3) L 05/05/19 16:20 Globulin 2.9 gm/dL 05/05/19 16:20 Albumin/Globulin Ratio 1.2 (1.0-1.8) 05/05/19 16:20 Triglycerides 239 mg/dL (<150) H 05/05/19 05:00 Cholesterol 122 mg/dL (<200) 05/05/19 05:00 LDL Cholesterol Direct 61 mg/dL (75-193) L 05/05/19 05:00 HDL Cholesterol 28 mg/dL (23-92) 05/05/19 05:00 Lipase 52 U/L (11-82) 05/04/19 12:50 - Physical Exam Vitals and I&O: Vital Signs Temp 97.0 F 05/07/19 08:00 Pulse 61 05/07/19 08:00 Resp 19 05/07/19 08:00 BP 121/57 05/07/19 08:00 Pulse Ox 98 05/07/19 08:00 Intake & Output 05/06/19 05/07/19 05/07/19 18:59 06:59 18:59 Intake Total 0352 235 5869 Balance 0205 102 8328 Weight (lbs) 79.379 kg 87.09 kg Intake: Intake, IV Amount 4993 061 6404 Levofloxacin 500mg/100mL 100 100 500 mg In 100 ml @ 100 mls/hr IV Q24HR [facility] Rx#: [id number] Sodium Chloride 0.9% 1, 1000 1000 000 ml @ 100 mls/hr IV . Q10H [facility] Rx#:[id number] metroNIDAZOLE 500mg/NS 200 100 100mL 500 mg In 100 ml @ 100 mls/hr IV Q8HR [facility] Rx #:[id number] Oral 750 340 Other: # Voids 3 3 # Bowel Movements 0 Weight Source Bedscale Bedscale Active Medications: Current Medications Acetaminophen/Hydrocodone Bitart ([place] 5mg/325mg) 1 tab PO QID PRN PRN Reason: Pain (Moderate) Stop: 07/04/19 11:55 Last Admin: 05/06/19 21:21 Dose: 1 tab Atorvastatin Calcium (Lipitor) 40 mg PO DAILY [facility] Stop: 07/05/19 08:59 Last Admin: 05/07/19 09:06 Dose: 40 mg [place] Oil/[place] Balsam/Trypsin (Venelex) 1 appl TP DAILY [facility] Stop: 07/04/19 09:59 Last Admin: 05/07/19 09:16 Dose: 1 appl Dextrose (D50w) 50 ml IVP PRN PRN PRN Reason: Blood Glucose less than 70 Stop: 07/03/19 17:26 Dextrose (Glutose 40%) 18.75 gm PO PRN PRN PRN Reason: Blood Glucose less than 70 Stop: 07/03/19 17:26 Diazepam (Valium) 5 mg PO BID PRN; Protocol PRN Reason: Anxiety Stop: 07/04/19 11:55 Diphenoxylate HCl/Atropine (Lomotil) 1 tab PO Q4HR PRN PRN Reason: Diarrhea Stop: 07/03/19 17:30 Gabapentin (Neurontin) 600 mg PO BID [facility] Stop: 07/04/19 16:59 Last Admin: 05/07/19 09:07 Dose: 600 mg Glimepiride (Amaryl) 4 mg PO BID [facility] Stop: 07/04/19 16:59 Last Admin: 05/07/19 09:09 Dose: Not Given Glucagon (Glucagen) 1 mg IM PRN PRN PRN Reason: Blood Glucose less than 70 Stop: 07/03/19 17:26 Sodium Chloride (Nacl 0.9%) 1,000 mls @ 100 mls/hr IV .Q10H [facility] Stop: 07/03/19 17:26 Last Admin: 05/07/19 12:49 Dose: 100 mls/hr Levofloxacin (Levaquin Pb) 500 mg in 100 mls @ 100 mls/hr IV Q24HR [facility] Stop: 07/04/19 07:59 Last Infusion: 05/07/19 10:28 Dose: Infused Metronidazole (Flagyl) 500 mg in 100 mls @ 100 mls/hr IV Q8HR [facility] Stop: 07/04/19 20:59 Last Admin: 05/07/19 12:49 Dose: 100 mls/hr Insulin Human Lispro (Humalog Insulin Sliding Scale) 0 units SUBQ ACHS [facility]; Protocol Stop: 07/05/19 20:59 Last Admin: 05/07/19 12:24 Dose: Not Given Lactobacillus Rhamnosus (Culturelle 15b) 1 each PO DAILY [facility] Stop: 07/06/19 08:59 Last Admin: 05/07/19 09:07 Dose: 1 each Lisinopril (Zestril) 20 mg PO BID [facility] Stop: 07/04/19 16:59 Last Admin: 05/07/19 09:08 Dose: Not Given Loperamide HCl (Imodium) 2 mg PO Q6H PRN PRN Reason: Diarrhea Stop: 07/04/19 11:55 Metformin HCl (Glucophage) 1,000 mg PO BID [facility] Stop: 07/04/19 16:59 Last Admin: 05/07/19 09:08 Dose: Not Given Miscellaneous (Probiotic Screen) 1 ea MC PRN PRN PRN Reason: PROTOCOL Stop: 07/05/19 11:09 Naproxen (Naprosyn) 500 mg PO BID [facility] Stop: 07/04/19 16:59 Last Admin: 05/07/19 09:07 Dose: 500 mg Ondansetron HCl (Zofran) 4 mg IV Q6H PRN PRN Reason: Nausea / Vomiting Stop: 07/04/19 11:33 Last Admin: 05/05/19 19:18 Dose: 4 mg Pantoprazole Sodium (Protonix) 40 mg PO DAILY [facility] Stop: 07/05/19 08:59 Last Admin: 05/07/19 08:52 Dose: 40 mg Quetiapine Fumarate (Seroquel) 50 mg PO HS [facility]; Protocol Stop: 07/04/19 20:59 Last Admin: 05/06/19 21:16 Dose: 50 mg Sitagliptin Phosphate (Januvia) 100 mg PO DAILY [facility] Stop: 07/05/19 08:59 Last Admin: 05/07/19 09:07 Dose: Not Given Vitamin B Complex/Vit C/Folic Acid (Vitamin B Complex W/Vitamin C) 1 tab PO DAILY [facility] Stop: 07/05/19 08:59 Last Admin: 05/07/19 09:07 Dose: 1 tab Zolpidem Tartrate (Ambien) 5 mg PO HS PRN PRN Reason: Insomnia Stop: 07/04/19 13:39 Last Admin: 05/06/19 22:15 Dose: 5 mg General: Alert, Oriented x3 HEENT: Atraumatic Neck: Supple Cardiovascular: Regular rate Lungs: Clear to auscultation Abdomen: Bowel sounds, Soft, no Tender, no Hepatomegaly, no Distended, no Rebound, no Mass Assessment/Plan - Assessment Assessment: 64 YO FEMALE WITH EPIGASTRIC PAIN AND PRIOR HX CHOLECYSTECTOMY STATES SHE HAD EGD AND COLO FOR ABD PAIN WORK UP AN OUTPATIENT WITHIN THE YEAR LFTS AND LIPASE ARE NORMAL COULD BE GERD EGD/colo record reviewed. There was retained gastric food indicating gastroparesis. Two transverse polyps removed. Hemorrhoids. CT shows evidence of prior spine surgery, and IUD? KUB shows copious amt of stool 1.can treat gastroparesis related vomiting with short course of reglan prn if vomiting returns 3.CONT PROTONIX 4.laxative given KUB result 5. Diet as tolerated 6. Tight diabetes control GI mcdaniel stable
[2019-05-07] MEDS: POLYETHYLENE GLYCOL 3350 17 GM PACK PO SCH (13:47)
[2019-05-07] MEDS: Hydrocodone/APAP 5mg/325mg Tab PO PRN ×2 (16:00→23:09)
--- NOTE | 2019-05-07 21:10 | Progress Notes ---
DATE: 05/07/2019 SUBJECTIVE: The patient was seen in her room. The patient is awake, alert, oriented. Denies any pain or discomfort, able to tolerate medications. Denies any episodes of nausea or vomiting. Otherwise, the patient appears to be in no acute distress. OBJECTIVE: VITAL SIGNS: Temperature 98, heart rate 64, blood pressure 103/55, respirations 19, 98% on room air. HEENT: Head is atraumatic and normocephalic. Eyes: Bilateral conjunctivae are clear. Bilateral pupils are equally round and reactive. NECK: Supple. No JVD. CARDIOVASCULAR: S1 and S2, without murmur. PULMONARY: Clear to auscultation. GASTROINTESTINAL: Soft and nontender without guarding. Positive bowel sounds. MUSCULOSKELETAL: No clubbing. No cyanosis noted. ASSESSMENT: 1. Acute gastroenteritis. 2. Muscle weakness. 3. History of cholecystectomy. PLAN: The patient will have a KUB today due to episodes of constipation, GI doctor to review colonoscopy done this year. If negative, the patient may be discharged [facility] for further [facility]. Treatment plans were discussed with the patient's nurse. Treatment plans were discussed with Dr. Agustin. JOB# [id number]
[2019-05-08] MEDS: Sodium Chloride 0.9% 1,000 ML IV SCH ×2 (00:14→12:08)
[2019-05-08] MEDS: metroNIDAZOLE 500mg/NS 100mL 500 MG/100 ML BAG IV SCH ×2 (05:26→12:11)
[2019-05-08] MEDS: INSULIN LISPRO SLIDING SCALE 100 UNITS/ML UNIT SUBQ SCH ×3 (06:39→16:29)
[2019-05-08] MEDS: Vitamin B Complex w/Vitamin C Tab PO SCH (08:34)
[2019-05-08] MEDS: Venelex 60gm Tube TP SCH (08:34)
[2019-05-08] MEDS: Lactobacillus Rhamnosus GG 15 Billion CFU CAP.SPRINK PO SCH (08:35)
[2019-05-08] MEDS: Pantoprazole 40 mg EC Tab PO SCH (08:35)
[2019-05-08] MEDS: POLYETHYLENE GLYCOL 3350 17 GM PACK PO SCH ×2 (08:37→10:37)
[2019-05-08] MEDS: Levofloxacin 500mg/100mL Premix Bag IV SCH (08:56)
--- NOTE | 2019-05-08 10:30 | Internal Medicine Prog Note ---
Internal Medicine Subjective - Subjective Patient seen and examined:: with staff Patient is:: awake, verbal, in bed Patient Complaints of:: other (abdominal pain resolved) Per staff patient has:: no adverse event, no episodes of fall Internal Medicine Objective - Results Result Diagrams: 05/07/19 05:30 05/07/19 05:30 Recent Labs: Laboratory Last Values WBC 9.2 Th/cmm (4.8-10.8) 05/07/19 05:30 RBC 3.32 Mil/cmm (3.80-5.20) L 05/07/19 05:30 Hgb 8.5 gm/dL (12-16) L 05/07/19 05:30 Hct 26.2 % (41.0-60) L 05/07/19 05:30 MCV 79.0 fl (81-100) L 05/07/19 05:30 MCH 25.5 pg (27.0-31.0) L 05/07/19 05:30 MCHC Differential 32.3 pg (28.0-36.0) 05/07/19 05:30 RDW 16.4 % (11.5-20.0) 05/07/19 05:30 Plt Count 293 Th/cmm (150-400) 05/07/19 05:30 MPV 7.9 fl 05/07/19 05:30 Neutrophils % 61.7 % (40.0-80.0) 05/07/19 05:30 Lymphocytes % 33.3 % (20.0-50.0) 05/07/19 05:30 Monocytes % 2.8 % (2.0-10.0) 05/07/19 05:30 Eosinophils % 2.1 % (0.0-5.0) 05/07/19 05:30 Basophils % 0.1 % (0.0-2.0) 05/07/19 05:30 PT 9.6 SECONDS (9.5-11.5) 05/05/19 05:00 INR 0.92 (0.5-1.4) 05/05/19 05:00 PTT (Actin FS) 25.6 SECONDS (26.0-38.0) L 05/05/19 05:00 Sodium 143 mEq/L (136-145) 05/07/19 05:30 Potassium 4.2 mEq/L (3.5-5.1) 05/07/19 05:30 Chloride 114 mEq/L (98-107) H 05/07/19 05:30 Carbon Dioxide 21.3 mEq/L (21.0-31.0) 05/07/19 05:30 Anion Gap 11.9 (7.0-16.0) 05/07/19 05:30 BUN 17 mg/dL (7-25) 05/07/19 05:30 Creatinine 1.3 mg/dL (0.6-1.2) H 05/07/19 05:30 Est GFR ( Amer) 52.7 ml/min (>90) 05/07/19 05:30 Est GFR (Non-Af Amer) 43.6 ml/min 05/07/19 05:30 BUN/Creatinine Ratio 13.1 05/07/19 05:30 Glucose 67 mg/dL (70-105) L 05/07/19 05:30 POC Glucose 124 MG/DL (70 - 105) H 05/08/19 08:07 Calcium 8.2 mg/dL (8.6-10.3) L 05/07/19 05:30 Magnesium 1.4 mg/dL (1.9-2.7) L 05/07/19 05:30 Total Bilirubin 0.3 mg/dL (0.3-1.0) 05/05/19 16:20 Direct Bilirubin 0.06 mg/dL (0.0-0.2) 05/05/19 16:20 AST 15 U/L (13-39) 05/05/19 16:20 ALT 12 U/L (7-52) 05/05/19 16:20 Alkaline Phosphatase 84 U/L (34-104) 05/05/19 16:20 Total Protein 6.3 gm/dL (6.0-8.3) 05/05/19 16:20 Albumin 3.4 gm/dL (3.7-5.3) L 05/05/19 16:20 Globulin 2.9 gm/dL 05/05/19 16:20 Albumin/Globulin Ratio 1.2 (1.0-1.8) 05/05/19 16:20 Triglycerides 239 mg/dL (<150) H 05/05/19 05:00 Cholesterol 122 mg/dL (<200) 05/05/19 05:00 LDL Cholesterol Direct 61 mg/dL (75-193) L 05/05/19 05:00 HDL Cholesterol 28 mg/dL (23-92) 05/05/19 05:00 Lipase 52 U/L (11-82) 05/04/19 12:50 - Physical Exam Vitals and I&O: Vital Signs Temp 97.9 F 05/08/19 08:00 Pulse 69 05/08/19 08:34 Resp 19 05/08/19 08:00 BP 122/70 05/08/19 08:34 Pulse Ox 98 05/08/19 08:00 Intake & Output 05/07/19 05/08/19 05/08/19 18:59 06:59 18:59 Intake Total 2300 1560 Balance 2300 1560 Weight (lbs) 192 lb 192 lb Intake: Intake, IV Amount 1300 1200 Levofloxacin 500mg/100mL 100 500 mg In 100 ml @ 100 mls/hr IV Q24HR [facility] Rx#: [id number] Sodium Chloride 0.9% 1, 1000 1000 000 ml @ 100 mls/hr IV . Q10H [facility] Rx#:[id number] metroNIDAZOLE 500mg/NS 200 200 100mL 500 mg In 100 ml @ 100 mls/hr IV Q8HR [facility] Rx #:[id number] Oral 1000 360 Other: # Voids 5 3 Weight Source Bedscale Bedscale Active Medications: Current Medications Acetaminophen/Hydrocodone Bitart ([place] 5mg/325mg) 1 tab PO QID PRN PRN Reason: Pain (Moderate) Stop: 07/04/19 11:55 Last Admin: 05/07/19 23:09 Dose: 1 tab Atorvastatin Calcium (Lipitor) 40 mg PO DAILY [facility] Stop: 07/05/19 08:59 Last Admin: 05/08/19 08:36 Dose: 40 mg [place] Oil/[place] Balsam/Trypsin (Venelex) 1 appl TP DAILY [facility] Stop: 07/04/19 09:59 Last Admin: 05/08/19 08:34 Dose: 1 appl Dextrose (D50w) 50 ml IVP PRN PRN PRN Reason: Blood Glucose less than 70 Stop: 07/03/19 17:26 Dextrose (Glutose 40%) 18.75 gm PO PRN PRN PRN Reason: Blood Glucose less than 70 Stop: 07/03/19 17:26 Diazepam (Valium) 5 mg PO BID PRN; Protocol PRN Reason: Anxiety Stop: 07/04/19 11:55 Diphenoxylate HCl/Atropine (Lomotil) 1 tab PO Q4HR PRN PRN Reason: Diarrhea Stop: 07/03/19 17:30 Gabapentin (Neurontin) 600 mg PO BID [facility] Stop: 07/04/19 16:59 Last Admin: 05/08/19 08:36 Dose: 600 mg Glimepiride (Amaryl) 4 mg PO BID [facility] Stop: 07/04/19 16:59 Last Admin: 05/08/19 08:36 Dose: 4 mg Glucagon (Glucagen) 1 mg IM PRN PRN PRN Reason: Blood Glucose less than 70 Stop: 07/03/19 17:26 Sodium Chloride (Nacl 0.9%) 1,000 mls @ 100 mls/hr IV .Q10H [facility] Stop: 07/03/19 17:26 Last Admin: 05/08/19 00:14 Dose: 100 mls/hr Levofloxacin (Levaquin Pb) 500 mg in 100 mls @ 100 mls/hr IV Q24HR [facility] Stop: 07/04/19 07:59 Last Admin: 05/08/19 08:56 Dose: 100 mls/hr Metronidazole (Flagyl) 500 mg in 100 mls @ 100 mls/hr IV Q8HR [facility] Stop: 07/04/19 20:59 Last Infusion: 05/08/19 06:26 Dose: Infused Insulin Human Lispro (Humalog Insulin Sliding Scale) 0 units SUBQ ACHS [facility]; Protocol Stop: 07/05/19 20:59 Last Admin: 05/08/19 06:39 Dose: Not Given Lactobacillus Rhamnosus (Culturelle 15b) 1 each PO DAILY [facility] Stop: 07/06/19 08:59 Last Admin: 05/08/19 08:35 Dose: 1 each Lisinopril (Zestril) 20 mg PO BID [facility] Stop: 07/04/19 16:59 Last Admin: 05/08/19 08:34 Dose: 20 mg Loperamide HCl (Imodium) 2 mg PO Q6H PRN PRN Reason: Diarrhea Stop: 07/04/19 11:55 Metformin HCl (Glucophage) 1,000 mg PO BID [facility] Stop: 07/04/19 16:59 Last Admin: 05/08/19 08:36 Dose: 1,000 mg Miscellaneous (Probiotic Screen) 1 ea [facility] PRN PRN PRN Reason: PROTOCOL Stop: 07/05/19 11:09 Naproxen (Naprosyn) 500 mg PO BID [facility] Stop: 07/04/19 16:59 Last Admin: 05/08/19 08:37 Dose: Not Given Ondansetron HCl (Zofran) 4 mg IV Q6H PRN PRN Reason: Nausea / Vomiting Stop: 07/04/19 11:33 Last Admin: 05/05/19 19:18 Dose: 4 mg Pantoprazole Sodium (Protonix) 40 mg PO DAILY [facility] Stop: 07/05/19 08:59 Last Admin: 05/08/19 08:35 Dose: 40 mg Polyethylene Glycol (Miralax) 17 gm PO DAILY [facility] Stop: 07/06/19 13:29 Last Admin: 05/08/19 08:37 Dose: Not Given Quetiapine Fumarate (Seroquel) 50 mg PO HS [facility]; Protocol Stop: 07/04/19 20:59 Last Admin: 05/07/19 20:25 Dose: 50 mg Sitagliptin Phosphate (Januvia) 100 mg PO DAILY [facility] Stop: 07/05/19 08:59 Last Admin: 05/08/19 08:35 Dose: 100 mg Vitamin B Complex/Vit C/Folic Acid (Vitamin B Complex W/Vitamin C) 1 tab PO DAILY [facility] Stop: 07/05/19 08:59 Last Admin: 05/08/19 08:34 Dose: 1 tab Zolpidem Tartrate (Ambien) 5 mg PO HS PRN PRN Reason: Insomnia Stop: 07/04/19 13:39 Last Admin: 05/07/19 23:09 Dose: 5 mg General: alert, NAD HEENT: NC/AT, PERRLA Neck: Supple, No JVD Lungs: CTAB Cardiovascular: RRR, Normal S1, Normal S2 Abdomen: soft, non-tender, non-distended Extremities: clear Neurological: no change Internal Medicine Assmt/Plan - Assessment Assessment: Constipation Epigastric pain. Hx of Cholecystectomy. Possible Gerd. Acute Gastroenteritis. Unable to walk, secondary to S/p back surgery. Generalized weakness. Leukocytosis. Microcytic anemia. Hypertension. Diabetes Mellitus. Dyslipidemia. - Plan Plan: Continue current treatment plan. Monitor Labs.Continue current medications Continue to monitor VS Monitor Diet/Nutritional support. Pain Management. PT/OT prn Safety precaution, Fall precaution, frequent nursing round. Supportive care. Continue collaborating with consulting specialists, case management and nursing team. Appreciate GI and ID recs. Disposition: possible discharge today. Nutritional Asmnt/Malnutr-PDOC - Dietary Evaluation Malnutrition Findings (Please click <Entered> for more info): Nutritional Asmnt/Malnutrition Start: 05/05/19 16: 26 Text: Status: Complete Freq: Protocol: Document 05/05/19 16:32 OCTAVIANOADALBERTOJULIUS (Rec: 05/05/19 16:37 OCTAVIANOADALBERTOJULIUS [email or web address]) Nutritional Asmnt/Malnutrition Patient General Information Nutritional Screening Moderate Risk Consult Diagnosis Acute Gastroenteritis Pertinent Medical Hx/Surgical Hx HTN, DM, Dyslipidemia, Hyperlipidemia Subjective Information IA/Consult: Elevated blood sugar, Pressure Ulcers (2) on Coccygeal area Pt is a 64-year-old female admitted on 05/04 c/o abdominal pain and diarrhea x 3 days. Per ED physician chart (05/04), Pt had nausea but no vomiting. Per Meal/Nutrition Activity Record, Pt ate 100% dinner on 05/04. Consult order received for glucose 184 on 05/04 and glucose level trend WNL on 05/05 with Glucose 89 noted. Per wound care note (05/05), Pressure ulcer (unable to determine stage) on coccygeal area 2x with periwound intact and surrounding scar tissue noted. Visited Pt in room, Pt stated she checks glucose level 2x/day at home and blood glucose target is 90-120 per MD. She tried to have low- sugar food items for usual diet at home. Pt stated she does not need diabetes education at this time. Pt ate 25% breakfast and 0% lunch d/ t nausea/pain. Sopke to RN Apple, Added Glucerna TID to meet nutrient needs and to support wound healing. Will continue monitor PO intake and wound healing progress. HT: 52 WT: 178 LB 12.8 oz (80.9 kg) ADJ BW: 62.42 kg BMI: 32.70 (Obese) GI: Nausea, Vomiting, Abdominal pain, diarrhea, Soft , Non-Tender, Large, Round BM: Not noted I/O: 2630/Not Noted Skin: Pale, Warm, Dry, Elastic , Scar on lower back, Skin tear and reddened on coccyx Wound: Pressure ulcer (unable to determine stage) on coccygeal area 2x with periwound intact and surrounding scar tissue Robby: 14 Diet Order: [facility] Estimated Energy Needs: ( Pressure Ulcer Stage III-IV Small/Undraining, ADJ BW) 4622-6801 kcals (28-33 kcals/ kg) 75-94 g Pro (1.2-1.5 g/kg) 3905-5761 ml (30-40 ml/kg) Current Diet Order/ Nutrition Support [facility] Pertinent Medications D50w (PRN), Glutose 40% (PRN), Lomotil (PRN), Glucagen (PRN) , INS-SS, Nacl 0.9% Pertinent Labs 05/05: Hgb/Hct 8.8/26.6, BUN/Cr 21/1.3, POC glucose (last 24 hours) 114, 93, 107 05/04: Hgb/Hct 9.7/29.5, BUN/Cr 24/1.4, Glucose 184 Nutritional Hx/Data Height 5 ft 2 in Height (Calculated Centimeters) 157.5 Current Weight (lbs) 178 lb Weight (Calculated Kilograms) 80.7 Weight (Calculated Grams) 15170.4 [place] Body Weight 50.1 kg % [place] Body Weight 161 Body Mass Index (BMI) 32.5 Weight Status Obese GI Symptoms GI Symptoms Nausea Vomitting Diarrhea Last BM Not noted Skin Integrity/Comment: Skin: Pale, Warm, Dry, Elastic , Scar on lower back, Skin tear and reddened on coccyx Wound: Pressure ulcer (unable to determine stage) on coccygeal area 2x with periwound intact and surrounding scar tissue Robby: 14 Current %PO Negligible < 25% Estimated Nutritional Goals BEE in Kcals: Adj wt of IBW Calories/Kcals/Kg 28-33 Kcals Calculated 9436-9789 Protein: Adj wt of IBW Protein g/k.2-1.5 Protein Calculated 75-94 Fluid: ml 5486-4282 ml (30-40 ml/kg) Nutritional Problem 3. Problem Problem Altered nutrition related labs Etiology r/t endocrine dysfunction and HX of DM Signs/Symptoms: (05/04) Glucose 184 2. Problem Problem Increased calories and protein needs Etiology r/t wound healing Signs/Symptoms: aeb Pressure ulcer (unable to determine stage) on coccygeal area 1. Problem Problem Inadequate oral intake Etiology r/t nausea/pain/poor appetite Signs/Symptoms: aeb PO intake 0-25% breakfast and lunch on 05/05 per Pt self- reported. Malnutrition Related to Morbid Obesity Malnutrition related to morbid obesity No Intervention/Recommendation Comments 1.Continue with [facility] diet as ordered. 2.Continue anti-hyperglycemic medication for glucose control per MD order. 3.Added Glucerna TID to meet nutrient needs and to support wound healing. 4.RN to encourage improved PO intake. 5.Continue wound care recommendation per wound care note. Expected Outcomes/Goals Expected Outcomes/Goals 1.PO intake to meet 75% of nutritional needs. 2.Monitor PO intake, wt, skin integrity to trend WNL, and nutrition related labs to trend WNL. 3.F/U as high risk in 2-3 days , 05/07-05/08
[2019-05-08] MEDS: Hydrocodone/APAP 5mg/325mg Tab PO PRN (14:48)
--- NOTE | 2019-05-08 16:10 | GI Progress Note ---
Subjective - Review of Systems Service Date: 05/08/19 Subjective: No active issues GI OBJECTIVE - Results Result Diagrams: 05/07/19 05:30 05/07/19 05:30 Recent Labs: Laboratory Last Values WBC 9.2 Th/cmm (4.8-10.8) 05/07/19 05:30 RBC 3.32 Mil/cmm (3.80-5.20) L 05/07/19 05:30 Hgb 8.5 gm/dL (12-16) L 05/07/19 05:30 Hct 26.2 % (41.0-60) L 05/07/19 05:30 MCV 79.0 fl (81-100) L 05/07/19 05:30 MCH 25.5 pg (27.0-31.0) L 05/07/19 05:30 MCHC Differential 32.3 pg (28.0-36.0) 05/07/19 05:30 RDW 16.4 % (11.5-20.0) 05/07/19 05:30 Plt Count 293 Th/cmm (150-400) 05/07/19 05:30 MPV 7.9 fl 05/07/19 05:30 Neutrophils % 61.7 % (40.0-80.0) 05/07/19 05:30 Lymphocytes % 33.3 % (20.0-50.0) 05/07/19 05:30 Monocytes % 2.8 % (2.0-10.0) 05/07/19 05:30 Eosinophils % 2.1 % (0.0-5.0) 05/07/19 05:30 Basophils % 0.1 % (0.0-2.0) 05/07/19 05:30 PT 9.6 SECONDS (9.5-11.5) 05/05/19 05:00 INR 0.92 (0.5-1.4) 05/05/19 05:00 PTT (Actin FS) 25.6 SECONDS (26.0-38.0) L 05/05/19 05:00 Sodium 143 mEq/L (136-145) 05/07/19 05:30 Potassium 4.2 mEq/L (3.5-5.1) 05/07/19 05:30 Chloride 114 mEq/L (98-107) H 05/07/19 05:30 Carbon Dioxide 21.3 mEq/L (21.0-31.0) 05/07/19 05:30 Anion Gap 11.9 (7.0-16.0) 05/07/19 05:30 BUN 17 mg/dL (7-25) 05/07/19 05:30 Creatinine 1.3 mg/dL (0.6-1.2) H 05/07/19 05:30 Est GFR ( Amer) 52.7 ml/min (>90) 05/07/19 05:30 Est GFR (Non-Af Amer) 43.6 ml/min 05/07/19 05:30 BUN/Creatinine Ratio 13.1 05/07/19 05:30 Glucose 67 mg/dL (70-105) L 05/07/19 05:30 POC Glucose 79 MG/DL (70 - 105) 05/08/19 11:27 Calcium 8.2 mg/dL (8.6-10.3) L 05/07/19 05:30 Magnesium 1.4 mg/dL (1.9-2.7) L 05/07/19 05:30 Total Bilirubin 0.3 mg/dL (0.3-1.0) 05/05/19 16:20 Direct Bilirubin 0.06 mg/dL (0.0-0.2) 05/05/19 16:20 AST 15 U/L (13-39) 05/05/19 16:20 ALT 12 U/L (7-52) 05/05/19 16:20 Alkaline Phosphatase 84 U/L (34-104) 05/05/19 16:20 Total Protein 6.3 gm/dL (6.0-8.3) 05/05/19 16:20 Albumin 3.4 gm/dL (3.7-5.3) L 05/05/19 16:20 Globulin 2.9 gm/dL 05/05/19 16:20 Albumin/Globulin Ratio 1.2 (1.0-1.8) 05/05/19 16:20 Triglycerides 239 mg/dL (<150) H 05/05/19 05:00 Cholesterol 122 mg/dL (<200) 05/05/19 05:00 LDL Cholesterol Direct 61 mg/dL (75-193) L 05/05/19 05:00 HDL Cholesterol 28 mg/dL (23-92) 05/05/19 05:00 Lipase 52 U/L (11-82) 05/04/19 12:50 - Physical Exam Vitals and I&O: Vital Signs Temp 97.8 F 05/08/19 12:00 Pulse 80 05/08/19 12:00 Resp 19 05/08/19 12:00 BP 121/69 05/08/19 12:00 Pulse Ox 98 05/08/19 12:00 Intake & Output 05/07/19 05/08/19 05/08/19 18:59 06:59 18:59 Intake Total 2300 1560 1100 Balance 2300 1560 1100 Weight (lbs) 87.09 kg 87.09 kg Intake: Intake, IV Amount 1300 1200 1100 Levofloxacin 500mg/100mL 100 100 500 mg In 100 ml @ 100 mls/hr IV Q24HR [facility] Rx#: [id number] Sodium Chloride 0.9% 1, 1000 1000 1000 000 ml @ 100 mls/hr IV . Q10H [facility] Rx#:[id number] metroNIDAZOLE 500mg/NS 200 200 100mL 500 mg In 100 ml @ 100 mls/hr IV Q8HR [facility] Rx #:[id number] Oral 1000 360 Other: # Voids 5 3 Weight Source Bedscale Bedscale Active Medications: Current Medications Acetaminophen/Hydrocodone Bitart ([place] 5mg/325mg) 1 tab PO QID PRN PRN Reason: Pain (Moderate) Stop: 07/04/19 11:55 Last Admin: 05/08/19 14:48 Dose: 1 tab Atorvastatin Calcium (Lipitor) 40 mg PO DAILY [facility] Stop: 07/05/19 08:59 Last Admin: 05/08/19 08:36 Dose: 40 mg [place] Oil/[place] Balsam/Trypsin (Venelex) 1 appl TP DAILY [facility] Stop: 07/04/19 09:59 Last Admin: 05/08/19 08:34 Dose: 1 appl Dextrose (D50w) 50 ml IVP PRN PRN PRN Reason: Blood Glucose less than 70 Stop: 07/03/19 17:26 Dextrose (Glutose 40%) 18.75 gm PO PRN PRN PRN Reason: Blood Glucose less than 70 Stop: 07/03/19 17:26 Diazepam (Valium) 5 mg PO BID PRN; Protocol PRN Reason: Anxiety Stop: 07/04/19 11:55 Diphenoxylate HCl/Atropine (Lomotil) 1 tab PO Q4HR PRN PRN Reason: Diarrhea Stop: 07/03/19 17:30 Gabapentin (Neurontin) 600 mg PO BID [facility] Stop: 07/04/19 16:59 Last Admin: 05/08/19 08:36 Dose: 600 mg Glimepiride (Amaryl) 4 mg PO BID [facility] Stop: 07/04/19 16:59 Last Admin: 05/08/19 08:36 Dose: 4 mg Glucagon (Glucagen) 1 mg IM PRN PRN PRN Reason: Blood Glucose less than 70 Stop: 07/03/19 17:26 Sodium Chloride (Nacl 0.9%) 1,000 mls @ 100 mls/hr IV .Q10H [facility] Stop: 07/03/19 17:26 Last Admin: 05/08/19 12:08 Dose: 100 mls/hr Levofloxacin (Levaquin Pb) 500 mg in 100 mls @ 100 mls/hr IV Q24HR [facility] Stop: 07/04/19 07:59 Last Infusion: 05/08/19 11:37 Dose: Infused Metronidazole (Flagyl) 500 mg in 100 mls @ 100 mls/hr IV Q8HR [facility] Stop: 07/04/19 20:59 Last Admin: 05/08/19 12:11 Dose: 100 mls/hr Insulin Human Lispro (Humalog Insulin Sliding Scale) 0 units SUBQ ACHS [facility]; Protocol Stop: 07/05/19 20:59 Last Admin: 05/08/19 11:37 Dose: Not Given Lactobacillus Rhamnosus (Culturelle 15b) 1 each PO DAILY [facility] Stop: 07/06/19 08:59 Last Admin: 05/08/19 08:35 Dose: 1 each Lisinopril (Zestril) 20 mg PO BID [facility] Stop: 07/04/19 16:59 Last Admin: 05/08/19 08:34 Dose: 20 mg Loperamide HCl (Imodium) 2 mg PO Q6H PRN PRN Reason: Diarrhea Stop: 07/04/19 11:55 Metformin HCl (Glucophage) 1,000 mg PO BID [facility] Stop: 07/04/19 16:59 Last Admin: 05/08/19 08:36 Dose: 1,000 mg Miscellaneous (Probiotic Screen) 1 ea [facility] PRN PRN PRN Reason: PROTOCOL Stop: 07/05/19 11:09 Naproxen (Naprosyn) 500 mg PO BID [facility] Stop: 07/04/19 16:59 Last Admin: 05/08/19 08:37 Dose: Not Given Ondansetron HCl (Zofran) 4 mg IV Q6H PRN PRN Reason: Nausea / Vomiting Stop: 07/04/19 11:33 Last Admin: 05/05/19 19:18 Dose: 4 mg Pantoprazole Sodium (Protonix) 40 mg PO DAILY [facility] Stop: 07/05/19 08:59 Last Admin: 05/08/19 08:35 Dose: 40 mg Polyethylene Glycol (Miralax) 17 gm PO DAILY [facility] Stop: 07/06/19 13:29 Last Admin: 05/08/19 10:37 Dose: 17 gm Quetiapine Fumarate (Seroquel) 50 mg PO HS [facility]; Protocol Stop: 07/04/19 20:59 Last Admin: 05/07/19 20:25 Dose: 50 mg Sitagliptin Phosphate (Januvia) 100 mg PO DAILY [facility] Stop: 07/05/19 08:59 Last Admin: 05/08/19 08:35 Dose: 100 mg Vitamin B Complex/Vit C/Folic Acid (Vitamin B Complex W/Vitamin C) 1 tab PO DAILY [facility] Stop: 07/05/19 08:59 Last Admin: 05/08/19 08:34 Dose: 1 tab Zolpidem Tartrate (Ambien) 5 mg PO HS PRN PRN Reason: Insomnia Stop: 07/04/19 13:39 Last Admin: 05/07/19 23:09 Dose: 5 mg General: Alert, Oriented x3 HEENT: Atraumatic Neck: Supple Cardiovascular: Regular rate Lungs: Clear to auscultation Abdomen: Bowel sounds, Soft, no Tender, no Hepatomegaly, no Distended, no Rebound Assessment/Plan - Assessment Assessment: 64 YO FEMALE WITH EPIGASTRIC PAIN AND PRIOR HX CHOLECYSTECTOMY STATES SHE HAD EGD AND COLO FOR ABD PAIN WORK UP AN OUTPATIENT WITHIN THE YEAR LFTS AND LIPASE ARE NORMAL COULD BE GERD EGD/colo record reviewed. There was retained gastric food indicating gastroparesis. Two transverse polyps removed. Hemorrhoids. CT shows evidence of prior spine surgery, and IUD? KUB shows copious amt of stool 1.can treat gastroparesis related vomiting with short course of reglan prn if vomiting returns 3.CONT PROTONIX 4.laxative given KUB result 5. Diet as tolerated 6. Tight diabetes control GI mcdaniel stable. Will see as needed
--- NOTE | 2019-05-16 18:37 | Discharge Summary ---
DATE OF DISCHARGE: 05/08/2019 The patient was admitted on 05/04/2019, discharged to [facility] in stable condition on 05/08/2019. This is a 64-year-old with 3-day history of epigastric pain and diarrhea and known to have a history of hypertension, diabetes, hyperlipidemia. The patient was admitted for acute gastroenteritis, possible sepsis, status post back surgery and history of anemia, hypertension, hyperlipidemia, diabetes. The patient was seen by Infectious Disease doctor as well and the patient was given IV fluids. Gradually the patient improved. The patient was in stable condition on 05/08/2019, discharged to rehab where I will follow the patient. CONDITION AT THE TIME OF DISCHARGE: Stable. MEDICATIONS: See the reconciliation sheet. ACTIVITY: As tolerated. DIET: As noted and as per order sheet. JOB# [id number]
== END 2019-05-08 18:20 | DRG 872 ==
LOC: ER 12:22 → MSI 16:00
PROVIDERS: ADMIT Internal Medicine; ATTEND Internal Medicine
DX: A41.9 Sepsis, unspecified organism (principal); G82.20 Paraplegia, unspecified; E11.65 Type 2 diabetes mellitus with hyperglycemia; I10 Essential (primary) hypertension; K52.9 Noninfective gastroenteritis and colitis, unspecified; E78.5 Hyperlipidemia, unspecified; R53.1 Weakness; K21.9 Gastro-esophageal reflux disease without esophagitis; D64.9 Anemia, unspecified; Z83.3 Family history of diabetes mellitus; Z82.49 Family history of ischemic heart disease and other diseases of the circulatory system; Z90.49 Acquired absence of other specified parts of digestive tract
CPT/HCPCS: 36415-UA; 74000-TC; 80048-TC; 80061-TC; 80076-TC; 82948-90; 83036-90; 83690-TC; 83735-TC; 85025-TC; 85610-TC; 87046-90; 90799; 96374; 96375; 96376; 97530; J1956; J2270; J2405; J3475; J7030; X3904; Z7610